=== PATIENT | male | born 1960 | race Caucasian/White ===

== ENCOUNTER 2017-09-09 18:43 | Inpatient (IN) ==
[2017-09-09] MEDS ORDERED: Nitroglycerin 0.4 MG TAB.SUBL SL PRN ×2 (18:56→21:48)
--- NOTE | 2017-09-09 19:00 | Emergency Department Note ---
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 The pain decreased after that 30 minutes but has not completely resolved. He felt lightheaded before the pain began, but not since. The pain initially radiated into his back, "between his shoulder blades". No prior similar episodes. Had PTCA and CABG 14 years ago. Severity scale (1-10): 3 Treatments prior to arrival chest pain: none - Related Data Allergies Allergy/AdvReac Type Severity Reaction Status Date / Time [place] Allergy Hives Verified 09/09/17 19:15 diltiazem [From Cardizem] Allergy Hives Verified 09/09/17 19:15 latex Allergy Hives Verified 09/09/17 19:15 pollen extracts Allergy Hives Verified 09/09/17 19:15 soybean Allergy Hives Verified 09/09/17 19:15 All systems ED: reviewed and negative except as stated. Constitutional: Reports: as per HPI Eyes: Denies: eye pain, eye discharge, vision change ENT ED: Denies: ear pain, throat pain, dental pain, hearing loss, epistaxis, congestion, dysphagia Cardiovascular: Reports: chest pain Respiratory: Denies: cough, dyspnea, wheezes, hemoptysis, stridor Gastrointestinal: Denies: abdominal pain, nausea, vomiting, diarrhea, constipation, hematemesis, melena, hematochezia Musculoskeletal: Denies: back pain, neck pain, arthralgia, myalgia Integumentary: Denies: rash, abrasion, lesions Neurological: Denies: headache, weakness, numbness, paresthesias, confusion, abnormal gait, vertigo Psychiatric: Denies: anxiety, depression, suicidal thoughts, homicidal thoughts , auditory hallucinations, visual hallucinations Endocrine: Denies: fatigue Hematological/Lymphatic: Denies: easy bleeding, easy bruising Allergic/Immunologic: Denies: facial swelling, urticaria Chest Pain PMH - Past Medical History Medical history: Reports: coronary artery disease Surgical history: Reports: coronary bypass (CABG) Psychiatric history: Reports: no psych history Prior Cardiac Testing/Procedures: Stenting, Cardiac Angiogram, CABG Physical Exam - General Limitations: no limitations General appearance: alert, in no apparent distress - Head Head exam: atraumatic, normocephalic - Eye Eye exam: Present: normal appearance, PERRL, EOMI - ENT ENT exam: normal exam, normal oropharynx, mucous membranes moist - Neck Neck exam: Present: normal inspection, full ROM, trachea midline - Chest Chest inspection: Present: normal inspection, symmetric chest wall rise. Absent : tenderness, rash - Respiratory Respiratory exam: Present: normal lung sounds bilaterally - Cardiovascular Cardiovascular exam: Present: regular rate, normal rhythm, normal heart sounds - Abdominal Exam Abdominal exam: Present: soft, Non-Tender - Extremities Exam Extremities exam: Present: normal inspection. 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 Plan on CTA if renal function permits - Consultations Consultation #1: discussed with hospitalist, asked for cards to comment on recommended path forward, at 2014 Consultation #2: discussed with Dr Brewer, cardiology, at 20:30, who concurred with admission and cardiology to re-evaluate him in the morning given administration of ASA and heparin Vital Signs Temperature 97.7 F 09/09/17 18:45 Pulse Rate 68 09/09/17 18:45 Respiratory Rate 18 09/09/17 18:45 Blood Pressure 121/76 09/09/17 18:45 O2 Sat by Pulse Oximetry 97 09/09/17 18:45 Temperature 97.7 F 09/09/17 18:57 Pulse Rate 68 09/09/17 18:57 Respiratory Rate 18 09/09/17 18:57 Blood Pressure 121/76 09/09/17 18:57 O2 Sat by Pulse Oximetry 97 06/28/18 18:57 Oxygen Delivery Oxygen Delivery Room Air Chest Pain - MDM Narrative Medical decision making narrative: This is a 57 y/o male with Hx CAD now with chest pain, normal CXR, and elevated troponin. ASA was given, and heparin started at the ACS dose. I discussed his case with the christian science practitioner hospitalist, who accepted him for admission. - Differential Diagnosis Likely: chest pain - Medical Records Medical records reviewed: Yes I reviewed the patient's medical records. - Lab Data Lab results reviewed: Yes I reviewed the patient's lab results. Result diagrams: 09/09/17 19:04 09/09/17 19:04 Lab Results 09/09/17 09/09/17 09/09/17 Range/Units 19:04 19:04 19:04 WBC 16.0 H (4.3-11.1) K/mcL RBC 5.50 (4.19-5.50) M/mcL Hgb 17.6 H (12.9-16.9) g/dL Hct 49.6 (37.5-50.1) % MCV 90.2 (83.0-100.0) fL MCH 32.0 (28.0-33.3) pg MCHC 35.5 (31.6-35.5) g/dL RDW 13.2 (11.5-14.5) % Plt Count 242 (140-400) K/mcL MPV 10.6 (9.4-12.4) fL Immature Gran % 0.9 (0-4) % Seg Neutrophils % 70.6 % Lymphocytes % 16.8 % Monocytes % 9.4 % Eosinophils % 1.6 % Basophils % 0.7 % Neutrophils # 11.3 H (1.6-8.9) K/mcL Lymphocytes # 2.7 (0.6-4.6) K/mcL Monocytes # 1.5 H (0.0-1.3) K/mcL Eosinophils # 0.3 (0.0-0.6) K/mcL Basophils # 0.1 (0.0-0.2) K/mcL PT 12.8 H (9.4-12.1) Seconds INR 1.1 APTT 31.1 (26.0-36.0) Seconds Sodium 132 L (136-145) mEq/L Potassium 3.9 (3.5-5.1) mEq/L Chloride 101 (98-107) mEq/L Carbon Dioxide 19 L (23-29) mEq/L BUN 18 (6-20) mg/dL Creatinine 0.90 (0.70-1.30) mg/dL Est GFR ( Amer) > 60 (> 60) Est GFR (Non-Af Amer) > 60 (> 60) BUN/Creatinine Ratio 20 (6-26) Glucose 145 H (70-105) mg/dL Calculated Osmolality 278 L (280-300) Calcium 10.5 H (8.6-10.3) mg/dL Troponin I 0.35 H* (< 0.04) ng/mL - Radiology Data Radiology results reviewed: Yes I reviewed the patient's radiology results. - EKG Data EKG results narrative: sinus rhythm, 67 bpm, PVCs, no FLORENCIO or STD, normal t-waves, normal axis, normal intervals - Core Measures AMI Core Measures Followed: Yes (asa given, heparin started) Critical Care Time Critical Care Time: Yes Total Critical Care Time: 20 Attestation: time spent reviewing test results and ECG, discussing case with cardiology, patient, and hospitalist
[2017-09-09 19:32] LABS: Hemoglobin 17.6 g/dL (12.9-16.9)
[2017-09-09 19:33] LABS: Basophils # 0.1 K/mcL (0.0-0.2); Basophils % 0.7 %; Eosinophils # 0.3 K/mcL (0.0-0.6); Eosinophils % 1.6 %; Hematocrit 49.6 % (37.5-50.1); Immature Granulocytes % 0.9 % (0-4); Lymphocytes # 2.7 K/mcL (0.6-4.6); Lymphocytes % 16.8 %; Mean Corpuscular HGB Conc 35.5 g/dL (31.6-35.5); Mean Corpuscular Volume 90.2 fL (83.0-100.0); Mean Platelet Volume 10.6 fL (9.4-12.4); Monocytes # 1.5 K/mcL (0.0-1.3); Monocytes % 9.4 %; Neutrophils # 11.3 K/mcL (1.6-8.9); Platelet Count 242 K/mcL (140-400); Red Cell Distribution Width 13.2 % (11.5-14.5); Segmented Neutrophils % 70.6 %
[2017-09-09] MEDS ORDERED: 0.9 % Sodium Chloride 1,000 ML IVC ONE (19:38)
[2017-09-09 19:57] LABS: BUN/Creatinine Ratio 20 (6-26); Blood Urea Nitrogen 18 mg/dL (6-20); Calcium 10.5 mg/dL (8.6-10.3); Carbon Dioxide 19 mEq/L (23-29); Chloride 101 mEq/L (98-107); Glucose 145 mg/dL (70-105); Osmolality,Calculated 278 (280-300); Potassium 3.9 mEq/L (3.5-5.1); Sodium 132 mEq/L (136-145); eGFR For African Americans > 60 (> 60); eGFR For Non-African Americans > 60 (> 60)
[2017-09-09 19:59] LABS: Troponin I 0.35 ng/mL (< 0.04)
[2017-09-09] MEDS ORDERED: *HR* Heparin 5,000 UNIT/ML VIAL IVP PRN (20:01)
[2017-09-09] MEDS ORDERED: *HR* Heparin 5,000 UNIT/ML VIAL IVP ONE (20:01)
[2017-09-09] MEDS ORDERED: Aspirin 81 MG TAB.CHEW PO STA (20:02)
[2017-09-09] MEDS ORDERED: Heparin 25,000 UNIT/500 ML D5W 25,000 UNIT/500 ML BAG IVC SCH (20:15)
[2017-09-09 20:24] LABS: INR 1.1; Prothrombin Time 12.8 Seconds (9.4-12.1)
[2017-09-09 20:26] LABS: Activated Partial Thrombo Time 31.1 Seconds (26.0-36.0)
[2017-09-09] MEDS ORDERED: Naloxone 0.4 MG/ML INJ IVP PRN (21:38)
[2017-09-09] MEDS ORDERED: Acetaminophen 325 MG TABLET PO PRN (21:44)
[2017-09-09] MEDS ORDERED: *HR* OxyCODONE/APAP 5/325 TABLET PO PRN (21:56)
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
[2017-09-10 02:51] LABS: Hematocrit 49.8 % (37.5-50.1); Hemoglobin 17.4 g/dL (12.9-16.9); Immature Platelets 5.4 % (1.1-6.1); Mean Corpuscular HGB Conc 34.9 g/dL (31.6-35.5); Mean Corpuscular Hemoglobin 32.2 pg (28.0-33.3); Mean Corpuscular Volume 92.1 fL (83.0-100.0); Mean Platelet Volume 10.5 fL (9.4-12.4); Red Blood Count 5.41 M/mcL (4.19-5.50); Red Cell Distribution Width 13.5 % (11.5-14.5)
[2017-09-10 03:07] LABS: BUN/Creatinine Ratio 19 (6-26); Blood Urea Nitrogen 15 mg/dL (6-20); Calcium 10.3 mg/dL (8.6-10.3); Carbon Dioxide 22 mEq/L (23-29); Chloride 102 mEq/L (98-107); Glucose 133 mg/dL (70-105); Osmolality,Calculated 281 (280-300); Sodium 134 mEq/L (136-145); eGFR For African Americans > 60 (> 60); eGFR For Non-African Americans > 60 (> 60)
[2017-09-10] MEDS: *HR* Heparin 5,000 UNIT/ML VIAL IVP PRN ×2 (03:22→11:08)
[2017-09-10] MEDS ORDERED: *HR* OxyCODONE/APAP 5/325 TABLET PO PRN (07:23)
[2017-09-10] MEDS: Loratadine 10 MG TABLET PO SCH (07:56)
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
[2017-09-10] MEDS ORDERED: Lisinopril 20 MG TABLET PO SCH (09:00)
[2017-09-10] MEDS: Aspirin 81 MG TAB.CHEW PO SCH (11:08)
--- NOTE | 2017-09-10 13:01 | Pre-Sedation Evaluation ---
Pre-sedation evaluation - Pre-sedation checklist Date of procedure: 09/10/17 Procedure: [facility] Recent Vitals: Last Vital Signs Temp 98.3 F 09/10/17 11:30 Pulse 69 09/10/17 11:30 Resp 16 09/10/17 11:30 BP 91/54 09/10/17 11:30 Pulse Ox 96 09/10/17 11:30 H&P (including ROS) documented in medical record: Yes Previous reaction to sedatives/anesthetics: No Dietary Status: NPO after Midnight Airway Assessment: Patient can open mouth completely, TMJ function normal, Micrognathia (under-bite, receding chin) absent, Neck with adequate range of motion Dentition: No loose teeth or bridges Possible difficult airway: No ASA Classification *see protocol: CLASS II-Mild systemic disease Cardiac Registry (Cardio Only) - Functional Capacity Functional Capacity: < 4 METS - Clincal Frailty Scale Clinical Frailty Scale: Vulnerable
[2017-09-10] MEDS ORDERED: 0.9 % Sodium Chloride 1,000 ML ONE ×2 (13:16→13:17)
[2017-09-10] MEDS ORDERED: *HR* Heparin 10,000 UNIT/10 ML VIAL ONE (13:16)
[2017-09-10] MEDS ORDERED: Heparin 1,000 UNITS/500 mL 500 ML ONE (13:16)
--- NOTE | 2017-09-10 13:16 | Internal Med Progress Note ---
<Jose Luis Sandoval - Last Filed: 09/10/17 15:18> Date of Encounter: 09/10/17 - Assessment and plan (1) NSTEMI (non-ST elevated myocardial infarction) Current Visit: Yes Status: Acute (2) Open abdominal wall wound Current Visit: Yes Status: Chronic Qualifiers: Encounter type: initial encounter Qualified Code(s): S31.109A - Unspecified open wound of abdominal wall, unspecified quadrant without penetration into peritoneal cavity, initial encounter (3) Hypertension, essential Current Visit: Yes Status: Acute (4) GERD (gastroesophageal reflux disease) Current Visit: Yes Status: Acute Qualifiers: Qualified Code(s): K21.9 - Gastro-esophageal reflux disease without esophagitis (5) CAD (coronary artery disease) Current Visit: Yes Status: Chronic Qualifiers: Coronary Disease-Associated Artery/Lesion type: [place] artery [place] vs. transplanted heart: [place] heart Associated angina: with unspecified angina Qualified Code(s): I25.119 - Atherosclerotic heart disease of [place] coronary artery with unspecified angina pectoris - Time Spent With Patient Total time spent is greater than 50% in coordination of care (as documented) at patient's floor/unit and/or counseling patient: - Constitutional Vitals: Temp Pulse Resp BP Pulse Ox 98.3 F 69 16 91/54 96 09/10/17 11:30 09/10/17 11:30 09/10/17 11:30 09/10/17 11:30 09/10/17 11:30 Internal Medicine: Result - Labs CBC & Chem 7: 09/10/17 02:24 09/10/17 02:24 Labs: Short CBC 09/10/17 Range/Units 02:24 WBC 10.9 (4.3-11.1) K/mcL Hgb 17.4 H (12.9-16.9) g/dL Hct 49.8 (37.5-50.1) % Plt Count 218 (140-400) K/mcL BMP 09/10/17 02:24 Sodium 134 L Potassium 4.0 Chloride 102 Carbon Dioxide 22 L BUN 15 Creatinine 0.78 Glucose 133 H Calcium 10.3 Cardiac Enzymes 09/10/17 09/10/17 Range/Units 02:24 09:22 Troponin I 5.94 H* 10.65 H* (< 0.04) ng/mL - ABG Interpretation ABG results: PT/INR, D-dimer PT 12.8 Seconds (9.4-12.1) H 09/09/17 19:04 Consult Discharge Plan - Plan Referrals: Nicole Gracia, ZOO KEEPER [Family Provider] - NONE,PCP [Primary Care Provider] - - Attending Attestation I performed an independent interview and examine of this patient. I agree with the findings, assessment, and plan of Dr. Jimenez, internal medicine resident. Cardiology input appreciated. Left heart catheterization planned for today in this patient with a non-STEMI. He continues on a heparin drip. Echocardiogram is pending. Patient is currently pain-free. We will request wound care evaluation for his chronic abdominal wound. Will likely need general surgery evaluation at some point as well. Patient otherwise remains hemodynamically stable. General: Awake alert and oriented 3, no acute distress skin warm and dry Lungs clear bilaterally, diminished breath sounds at the bases Heart regular rate and rhythm Abdomen soft with normoactive bowel sounds. He has a chronic abdominal wound as described on admission H&P. Currently covered by dressing Extremities show no significant edema <Damian Jimenez - Last Filed: 09/10/17 16:16> Date of Encounter: 09/10/17 Time of Encounter: 08:15 - Assessment and plan (1) NSTEMI (non-ST elevated myocardial infarction) Current Visit: Yes Status: Acute Assessment and plan: Elevated troponin, 0.35 to 5.94, no chest pain, dyspnea, or diaphoresis currently, ECG without st elevation or depression Plan: on schedule for LHC, heparin gtt, TTE (2) GERD (gastroesophageal reflux disease) Current Visit: Yes Status: Acute Assessment and plan: chronic, on PPI, continuing (3) Hypertension, essential Current Visit: Yes Status: Acute Assessment and plan: chronic, on deanne-i; continuing; normotensive (4) CAD (coronary artery disease) Current Visit: Yes Status: Chronic Assessment and plan: CABG x 2003 Per Cardiology: C today Pt placed on ASA, Statin, BB Qualifiers: Coronary Disease-Associated Artery/Lesion type: [place] artery [place] vs. transplanted heart: [place] heart Associated angina: with unspecified angina Qualified Code(s): I25.119 - Atherosclerotic heart disease of [place] coronary artery with unspecified angina pectoris (5) Open abdominal wall wound Current Visit: Yes Status: Chronic Assessment and plan: 7 year chronic open abdominal wound, s/p hernia surgery; self-dressing changes Plan: Wound care Qualifiers: Encounter type: initial encounter Qualified Code(s): S31.109A - Unspecified open wound of abdominal wall, unspecified quadrant without penetration into peritoneal cavity, initial encounter - Time Spent With Patient Total time spent is greater than 50% in coordination of care (as documented) at patient's floor/unit and/or counseling patient: - Subjective Interval history: On schedule for [facility], no chest pain or shortness of breath today, chronic midline wound (7 years) unchanged per patient. - Constitutional Vitals: Temp Pulse Resp BP Pulse Ox 98.3 F 69 16 91/54 96 09/10/17 11:30 09/10/17 11:30 09/10/17 11:30 09/10/17 11:30 09/10/17 11:30 General appearance: Present: A&O X 3, pleasant, no acute distress - Head Head exam: Present: atraumatic, normal inspection - Eye Eye exam: Present: EOMI, normal appearance - Neck Neck exam general surgery: Present: supple, trachea midline. Absent: lymphadenopathy - Respiratory Respiratory exam: Present: CTAB. Absent: accessory muscle use, rales, rhonchi, wheezes - Cardiovascular Cardiovascular exam: Present: RRR, +S1, +S2. Absent: diastolic murmur, gallop, rubs, systolic murmur - GI/Abdominal GI/Abdominal exam: Present: normal bowel sounds, soft. Absent: distended, tenderness Additional comments: midline open wound, no pururent drainage - Extremities Exam Extremities exam: Present: warm, radial pulses palpable and symmetrical. Absent : calf tenderness, cyanotic, pedal edema - Neurological Exam Neurological exam: Present: CN II-XII intact, oriented X3, no focal deficits. Absent: pronater drift, facial droop, speech deficit - Skin Skin exam: Present: dry, intact Internal Medicine: Result - Labs CBC & Chem 7: 09/10/17 02:24 09/10/17 02:24 Labs: Short CBC 09/10/17 Range/Units 02:24 WBC 10.9 (4.3-11.1) K/mcL Hgb 17.4 H (12.9-16.9) g/dL Hct 49.8 (37.5-50.1) % Plt Count 218 (140-400) K/mcL BMP 09/10/17 02:24 Sodium 134 L Potassium 4.0 Chloride 102 Carbon Dioxide 22 L BUN 15 Creatinine 0.78 Glucose 133 H Calcium 10.3 Cardiac Enzymes 09/10/17 09/10/17 Range/Units 02:24 09:22 Troponin I 5.94 H* 10.65 H* (< 0.04) ng/mL - ABG Interpretation ABG results: PT/INR, D-dimer PT 12.8 Seconds (9.4-12.1) H 09/09/17 19:04
[2017-09-10] MEDS ORDERED: ISOVUE-370 200 ML INFUS..BTL IV ONE ×2 (13:17→15:40)
[2017-09-10] MEDS ORDERED: Nitroglycerin 1,000 MCG/10 ML VIAL IV ONE ×2 (13:17→14:34)
[2017-09-10] MEDS ORDERED: *HR* Midazolam HCl 2 MG/2 ML VIAL ONE ×3 (13:50→14:52)
[2017-09-10] MEDS ORDERED: *HR* FentaNYL (PF) 100 MCG/2 ML VIAL ONE ×2 (13:50→14:45)
[2017-09-10] MEDS ORDERED: *HR* Adenosine 6 MG/2 ML VIAL IVP ONE (14:29)
[2017-09-10] MEDS ORDERED: *HR* Bivalirudin 250 MG VIAL IVC ONE ×2 (14:56)
[2017-09-10] MEDS ORDERED: *HR* Ticagrelor 90 MG TABLET ONE (15:10)
[2017-09-10] MEDS ORDERED: *HR* Atropine Sulfate 1 MG/10 ML SYRINGE ONE ×2 (15:27→19:50)
--- NOTE | 2017-09-10 16:30 | Invasive Diagnostic Lab Proc ---
Name: Raúl Calabrese Date of Study: 09/10/2017 Date: 1960 Ht: 68.1in Medical Record#: [id number] Age: 57 Wt: 210.98lb Gender: Male BSA: 2.09 Order #: [id number] BMI: 31.98 Physicians Procedure Physician: Vicki Carreon MD, [facility] Referring MD: Referring MD: Staff Name Position Time In Wally Vaz RN Scrub 01:46 PM Rabia Browning RT (R) Monitor 01:46 PM Koki Jones RN Lozenge Maker Helper 01:46 PM Eneida Feng RN Lozenge Maker Helper 01:46 PM Indications Indication Non-Stemi Procedures Performed Procedure L HRT ART/GRFT ANGIO Pre-Procedure Checklist Informed consent is complete signed and on chart. H&P is on chart. ID band is on and ID verified with patient. Patient NPO for procedure The procedure was described for the patient and questions were answered. Blood Pressure: 114/74 ECG is on chart. Plan of Care Patient will tolerate the procedure without complications. Adequate level of comfort will be maintained. Hemodynamics will remain stable Patient will recover from procedure without complications. Respiratory function will be maintained. Cardiac rhythm will remain stable. Patient temperature will be maintained. Patient and/or family have verbalized understanding of the procedure. Patient Education Chief Complaint/Reason for Test: Cardiac Cath Developmental Category: Adult (18-64 years) Developmentally Appropriate for Age: Yes Learning Barriers: None Education Needs: Procedure Education Method: Verbal Information Taught: Cardiac Cath Educational Evaluation: Able to repeat information Intravenous Access Time IV Size Location DC'd Fluid/Drip Rate Units RN 01:34 PM 18g 1 03/18" Patent On Arrival Rt Antecubital 0.9NaCl 25 ml/hr Koki Jones RN Allergies pollen extracts [place] soybean latex Penicillin diltiazem Calcium Channel Shilpa Vital Signs Time BP (mmHg) HR (bpm) O2 Sat. RR (bpm) LOC 01:35 PM 114 / 74 58 98 % 16 01:48 PM / % 5 = Fully awake and oriented or at pre-proc level 01:48 PM / % 5 = Fully awake and oriented or at pre-proc level 02:03 PM / % 4 = Oriented but drowsy 02:19 PM / % 4 = Oriented but drowsy 02:34 PM / % 4 = Oriented but drowsy 02:52 PM / % 4 = Oriented but drowsy 03:07 PM / % 4 = Oriented but drowsy 02:29 PM 110 / 70 64 98 % 02:34 PM 106 / 70 63 99 % 02:39 PM 110 / 72 64 99 % 02:44 PM 112 / 86 65 100 % 02:49 PM 120 / 82 67 97 % 02:54 PM 129 / 80 67 98 % 02:59 PM 130 / 88 74 98 % 03:04 PM 116 / 75 67 94 % 03:09 PM 104 / 70 72 93 % 03:14 PM 114 / 72 69 98 % 01:49 PM 113 / 70 59 96 % 01:54 PM 111 / 59 59 98 % 01:59 PM 114 / 62 63 98 % 02:04 PM 107 / 70 60 97 % 02:09 PM 108 / 76 62 96 % 02:11 PM 112 / 67 62 97 % 02:14 PM 115 / 68 78 97 % 02:19 PM 110 / 66 64 98 % 02:24 PM 116 / 68 65 99 % Procedural Medications Time Medication Dose Units Method Given By 01:55 PM Oxygen 2 L/min nasal cannula Koki Jones RN 01:55 PM Versed 2 mg Intravenous Koki Jones RN 01:56 PM Fentanyl 50 mcg Intravenous Koki Jones RN 02:05 PM Versed 1 mg Intravenous Koki Jones RN 02:05 PM Fentanyl 25 mcg Intravenous Koki Jones RN 02:06 PM Lidocaine 2% 20 ml Subcutaneous Vicki Carreon MD, FACC 02:09 PM Benadryl 25 mg Intravenous Koki Jones RN 02:31 PM Angiomax 0.75mg/kg bolus: 14 ml Intravenous Koki Jones RN 02:31 PM Angiomax 1.75mg/kg/hr: 33 ml Intravenous Koki Jones RN 02:44 PM Nitroglycerin 200 mcg Intracoronary Vicki Carreon MD, FACC 02:44 PM Nitroglycerin 200 mcg Intracoronary Vicki Carreon MD, FACC 02:45 PM Fentanyl 50 mcg Intravenous Koki Jones RN 02:46 PM Adenosine 400 mg Intracoronary Vicki Carreon MD, FACC 02:52 PM Reopro Bolus: 11.9 ml Intracoronary Vicki Carreon MD, FACC 02:53 PM Versed 2 mg Intravenous Koki Jones RN 03:00 PM Nitroglycerin 200 mcg Intracoronary Vicki Carreon MD, [facility] 03:01 PM Nitroglycerin 200 mcg Intracoronary Wally Vaz RN 03:04 PM Nitroglycerin 200 mcg Intracoronary Vicki Carreon MD, [facility] 03:18 PM Brilinta 180 mg Orally Koki Jones RN ASA Classification: CLASS II- Mild systemic disease (i.e. well-controlled diabetes, hypertension, asthma, cigarette smoking) Carlton Score Preprocedure Postprocedure Activity 2- Moves 4 extremities sustained head lift Activity 2- Moves 4 extremities sustained head lift Circulation 2- SBP +/= 20 points of pre-anesthetic level Circulation 2- SBP +/= 20 points of pre-anesthetic level Consciousness 2- Awake and alert oriented x 3 Consciousness 2- Awake and alert oriented x 3 O2 Saturation 2- Able to maintain O2 satruation of 92% on room air O2 Saturation 2- Able to maintain O2 satruation of 92% on room air Respiratory 2- Able to deep breathe and cough well Respiratory 2- Able to deep breathe and cough well Total Score 10 Total Score 10 Contrast Agent: Isovue Diagnostic Contrast: 146 ml Total Contrast: 146 ml Fluoro Dose: 78170 mGy Procedure Log Time Note Enter By 01:36 PM CathStat 01:45 PM Pt arrived to pathology laboratory director 2 at 13:45 dspell:46 PM Wally Vaz RN Position: Scrub Time in: 13:46 dspell:46 PM Rabia Browning RT (R) Position: Monitor Time in: 13:46 dsp:46 PM Koki Jones RN Position: Lozenge Maker Helper Time in: 13:46 dspell:46 PM Physician arrived 13:46 dspell:46 PM Eneida Feng RN Position: Lozenge Maker Helper Time in: 13:46 dspell:46 PM Patient charges- Angio tray pack, Navilyst 3mm J, Pulse Oximetry and ACIST tubing and transducer dspell:46 PM IV Supplies used: J loop Angio Cath. dspell 01:47 PM Case Delayed No dspell:47 PM Meet and greet completed dspell:47 PM Sign in performed according to hospital policy. dspell:47 PM Procedure start 13:47 dspellman 01:47 PM Case Start 01:48 PM Time: 13:48 Patient comfortable and pain free: Yes dspellman 01:48 PM Time: 13:48LOC: 5 = Fully awake and oriented or at pre-proc level dspellman 01:48 PM Vitals capture started with the following parameters, Patient=Adult, Interval=5 min, Initial Lyithsvd=788 mmHg, Deflation Rate=5 mmHg, Cuff placed on Right Arm 01:49 PM HR=59 bpm, YSIL=220/70 mmhg, SpO2=96.0 %, Comment=Sinus Huy 01:54 PM HR=59 bpm, TLOD=329/59 mmhg, SpO2=98.0 %, Comment=Sinus Huy 01:55 PM Time: 13:55 Oxygen on at 2 L/min per nasal cannula by Koki Jones RN dspkeke 01:56 PM Time: 13:55 Versed 2 mg Intravenous Given by Koki Jones RN dspkeke 01:56 PM Time: 13:56 Fentanyl 50 mcg Intravenous Given by Koki Jones RN dspkeke 01:57 PM Hair removed from procedure site in holding area using clippers. Bilateral groin prepped with Chloraprep by Rabia Browning (R), then patient was draped. Skin intact. dspellman 01:57 PM Clinical Presentation: Non-STEMI dspellman 01:58 PM Pressure channel 1 zero failed. 01:58 PM Pressure channel 1 zero failed. 01:58 PM Pressure channel 1 zeroed. 01:58 PM Pressure channel 1 zeroed. 01:59 PM HR=63 bpm, MKYQ=823/62 mmhg, SpO2=98.0 %, Comment=Sinus 02:03 PM Time: 13:48LOC: 5 = Fully awake and oriented or at pre-proc level dspellman 02:03 PM Time: 13:48 Patient comfortable and pain free: Yes dspellman 02:03 PM Time out performed according to hospital policy dspellman 02:04 PM HR=60 bpm, XOEC=983/70 mmhg, SpO2=97.0 %, Comment=Sinus 02:05 PM Time: 14:05 Versed 1 mg Intravenous Given by Koki Jones RN 02:06 PM Time: 14:05 Fentanyl 25 mcg Intravenous Given by Koki Jones RN 02:06 PM Time: 14:06 20 ml Lidocaine 2% to right groin Subcutaneous Given by Vicki Carreon MD, [facility] dspellman 02:06 PM Access obtained by percutaneous puncture. 5Fr 10cm Terumo [place] sheath placed in right Femoral artery. [id number] dspellman 02:07 PM 0.035 145cm Navilyst 3mmJ wire [id number] dspellman 02:07 PM 5Fr FL 4 catheter inserted over the wire DN dspellman 02:07 PM unable to advance catheter or wire dspellman 02:08 PM Catheter removed dspellman 02:08 PM 5Fr FR 4 catheter inserted over the wire [facility] dspellman 02:08 PM Wire removed dspellman 02:09 PM HR=62 bpm, FVOQ=257/76 mmhg, SpO2=96.0 %, Comment=Sinus 02:09 PM RCA angiography performed in multiple views. dspellman 02:09 PM Time: 14:09 Benadryl 25 mg Intravenous Given by Koki Jones RN dspellman 02:10 PM SVG to the RPDA angio performed in multiple views. Patent dspellman 02:10 PM SVG to the 1st Diagonal angio performed in multiple views. Patent dspellman 02:10 PM NIBP STAT measurement started. 02:11 PM HR=62 bpm, MRDQ=980/67 mmhg, SpO2=97.0 %, Comment=Sinus 02:11 PM SVG to the 1st OM angio performed in [place]. Occluded dspellman 02:12 PM Catheter removed dspellman 02:13 PM 5Fr IM catheter inserted over the wire [id number] dspellman 02:13 PM Recorded Pressure: Ao, HR=73, Condition=Condition 1 (Aorta) Ao 44/16/32 02:14 PM Recorded Pressure: Ao, HR=67, Condition=Condition 1 (Aorta) Ao 81/60/70 02:14 PM HR=78 bpm, PSSD=029/68 mmhg, SpO2=97 % 02:14 PM Left CATHERINE to the LAD angio performed in multiple views. dspellman 02:14 PM Catheter removed dspellman 02:14 PM 5Fr FL 4 catheter inserted over the wire [facility] dspellman 02:16 PM LCA angiography performed in multiple views. dspellman 02:16 PM Catheter removed dspellman 02:16 PM 5Fr Pigtail catheter inserted over the wire DNC dspellman 02:18 PM Pressure channel 1 zeroed. 02:18 PM Recorded Pressure: LV, HR=66, Condition=Condition 1 (Left Ventricle) LV 84/6/6 02:19 PM Time: 14:03 Patient comfortable and pain free: Yes dspellman 02:19 PM Time: 14:03LOC: 4 = Oriented but drowsy dspellman 02:19 PM HR=64 bpm, URPO=256/66 mmhg, SpO2=98.0 %, Comment=Sinus 02:19 PM Recorded Pressure: LV, Ao, HR=65, Condition=Condition 1 (Left Ventricle) LV 78/11/12, (Aorta) Ao 89/50/76 02:19 PM Catheter selectively placed in left ventricle dspellman 02:19 PM Bolus angiogram of left Ventricle complete: 8 ml/sec for a total of 24 mls dspellman 02:21 PM Catheter removed dspellman 02:21 PM Coronary Dominance: right dspellman 02:22 PM Lesion found in Proximal RCA. Pre Stenosis: 100 Pre JING Flow: 0: No Flow/No perfusion dspellman 02:24 PM HR=65 bpm, STRI=221/68 mmhg, SpO2=99.0 %, Comment=Sinus 02:24 PM Pressure channel 1 zeroed. 02:29 PM HR=64 bpm, RIIN=972/70 mmhg, SpO2=98.0 %, Comment=Sinus 02:31 PM PCI Status Urgent dspellman 02:31 PM Time: 14:31 Angiomax 0.75mg/kg bolus: 14 ml Intravenous Given by Koki Jones RN [place] pump dspellman 02:32 PM Time: 14:31 Angiomax 1.75mg/kg/hr: 33 ml Intravenous Given by Koki Jones RN [place] pump dspellman 02:32 PM Recorded Pressure: Ao, HR=75, Condition=Condition 1 (Aorta) Ao 103/68/86 02:33 PM PCI lesion in Right PDA. dspellman 02:33 PM 6Fr JR 4 Cordis guide catheter was used to cannulate the PCI vessel successfully. reused? No dspellman 02:34 PM HR=63 bpm, PDRX=412/70 mmhg, SpO2=99.0 %, Comment=Sinus 02:34 PM Time: 14:19LOC: 4 = Oriented but drowsy dspellman 02:34 PM .014 Prowater 190cm guide wire across target lesion- successful. reused? No dspellman 02:34 PM Inflation device was opened. dspell 02:34 PM Filter wire inserted to target lesion. dspellman 02:36 PM Recorded Pressure: Ao, HR=63, Condition=Condition 1 (Aorta) Ao 110/85/97 02:39 PM HR=64 bpm, SJAD=590/72 mmhg, SpO2=99.0 %, Comment=Sinus 02:41 PM 4.0mm x 24mm Synergy drug-eluting stent across target lesion- successful Lot #[id number] dspellman 02:41 PM Stent deployed @ 16 ana for 30 seconds dspellman 02:42 PM Stent balloon reinflated @ 20 ana for 20 seconds dspell 02:43 PM Stent delivery system removed intact. dspell 02:43 PM complaint of low back pain dspellman 02:44 PM HR=65 bpm, IWKX=664/86 mmhg, CoI7=558.0 %, Comment=Sinus 02:44 PM Time: 14:44 Nitroglycerin 200 mcg Intracoronary Given by Vicki Carreon MD, [facility] dspell 02:45 PM Time: 14:44 Nitroglycerin 200 mcg Intracoronary Given by Vicki Carreon MD, [facility] 02:45 PM Time: 14:45 Fentanyl 50 mcg Intravenous Given by Koki Jones RN dspell 02:45 PM Recorded Pressure: Ao, HR=72, Condition=Condition 1 (Aorta) Ao 115/82/98 02:46 PM Time: 14:46 Adenosine 400 mg Intracoronary Given by Vicki Carreon MD, [facility] 02:46 PM Recorded Pressure: Ao, HR=61, Condition=Condition 1 (Aorta) Ao 120/79/98 02:46 PM Recorded Pressure: Ao, HR=68, Condition=Condition 1 (Aorta) Ao 178/68/108 02:49 PM HR=67 bpm, SPWT=444/82 mmhg, SpO2=97.0 %, Comment=Sinus 02:52 PM Time: 14:34LOC: 4 = Oriented but drowsy dspellman 02:52 PM Time: 14:52 Reopro Bolus: 11.9 ml Intracoronary Given by Vicki Carreon MD, [facility] [place] pump dspell 02:53 PM Time: 14:53 Versed 2 mg Intravenous Given by Koki Jones RN dspell 02:54 PM HR=67 bpm, ZJOA=995/80 mmhg, SpO2=98.0 %, Comment=Sinus 02:54 PM 4.5mm x 16mm Rebel [employer] bare metal stent across target lesion- successful Lot #[id number] dspellman 02:57 PM Stent deployed @ 18 ana for 20 seconds dspellman 02:58 PM Stent balloon reinflated @ 20 ana for 15 seconds dspellman 02:59 PM Stent balloon reinflated @ 20 ana for 15 seconds dspellman 02:59 PM HR=74 bpm, VWMC=916/88 mmhg, SpO2=98.0 %, Comment=Sinus 02:59 PM Recorded Pressure: Ao, HR=74, Condition=Condition 1 (Aorta) Ao 134/98/114 02:59 PM Stent delivery system removed intact. dspell 03:00 PM Time: 15:00 Nitroglycerin 200 mcg Intracoronary Given by Vicki Carreon MD, [facility] dspell 03:01 PM Recorded Pressure: Ao, HR=72, Condition=Condition 1 (Aorta) Ao 149/97/118 03:01 PM Time: 15:01 Nitroglycerin 200 mcg Intracoronary Given by Wally Vaz RN dspell 03:03 PM Filter wire removed. dspell 03:04 PM HR=67 bpm, EGSJ=568/75 mmhg, SpO2=94.0 %, Comment=Sinus 03:04 PM Time: 15:04 Nitroglycerin 200 mcg Intracoronary Given by Vicki Carreon MD, [facility] dspell 03:06 PM Guide catheter removed intact. dspell 03:07 PM Time: 14:52LOC: 4 = Oriented but drowsy dspell 03:08 PM 5Fr FR 4 catheter inserted over the wire [facility] dspellman 03:09 PM RCA angiography performed in [facility]. dspell 03:09 PM HR=72 bpm, ACXG=030/70 mmhg, SpO2=93.0 %, Comment=Sinus 03:09 PM Catheter removed dspell 03:10 PM Bolus angiogram of right Femoral complete: 4 ml/sec for a total of 7 mls dspell 03:11 PM Procedure completed at 15:11 09/10/2017 dspellman 03:14 PM HR=69 bpm, UBPN=027/72 mmhg, SpO2=98.0 %, Comment=Sinus 03:15 PM Did you address JING flow and Dominance? Yes dspellman 03:16 PM Sign out completed: Radiation Dose 1262.23 mGy, 30111 cGy/cm2 Fluoro Time: 15.5 Isovue 370 - 200ml contrast 146 ml given by Vicki Carreon MD, [facility]. Complications: NoneCardiac Rehab Consult needed: YesConfirmed administered medications: Yes dspellman 03:16 PM Isovue 370 - 200ml,1 Bottle(s) used. dspellman 03:16 PM Sheath left in place to be pulled on floor/holding areaV+Pad dspellman 03:17 PM Estimated Blood Loss: minimal dspellman 03:17 PM Post ECG NSR dspellman 03:17 PM Post Blood Pressure 114/72 dspellman 03:17 PM 15:17 Post Pulses Bilateral DP & PT 2+ dspellman 03:17 PM Information taught Cardiac Cath and PCI dspellman 03:18 PM Education needs Procedure, Disease Process, and Responsibilities of Patient in Care dspellman 03:18 PM Learning barriers :None dspellman 03:18 PM Education Methods Verbal dspellman 03:18 PM Education evaluation Able to repeat information dspellman 03:18 PM Site status No bleeding/hematoma - Rt Groin as reported by Wally Vaz RN at 15:18 dspellman 03:18 PM Opsite applied dspellman 03:18 PM Plavix, Effient or Brilinta given Yes dspellman 03:19 PM Time: 15:18 Brilinta 180 mg Orally Given by Koki Jones RN dspellman 03:19 PM Delay to floor No dspellman 03:20 PM Family placed in No family available. dspellman 03:20 PM Complications: None dspellman 03:20 PM Fluoro Time: 15.5 dspellman 03:20 PM Isovue 370 - 200ml contrast [address] Brenda Carreon. dspellman 03:20 PM Radiation Dose 1262.23 mGy dspellman 03:22 PM Lesion found in Proximal LAD. Pre Stenosis: 100 Pre JING Flow: dspellman 03:22 PM Lesion found in 1st Diagonal. Pre Stenosis: 60 Pre JING Flow: dspellman 03:22 PM Time: 15:07LOC: 4 = Oriented but drowsy dspellman 03:23 PM Lesion found in Proximal Circumflex. Pre Stenosis: 100 Pre JING Flow: dspellman 03:23 PM Lesion found in 1st Marginal. Pre Stenosis: 100 Pre JING Flow: dspellman 03:24 PM Lesion found in Right PDA. Pre Stenosis: 90 Pre JING Flow: 2: Partial Flow/Perfusion (> 1 but < 3) dspellman 03:25 PM Lesion found in Ramus. Pre Stenosis: 40 Pre JING Flow: dspellman 03:25 PM Lesion found in Proximal LMCA. Pre Stenosis: 50 Pre JING Flow: dspellman 03:28 PM Patient out of room: 15:28 dspellman 03:33 PM Report given to July ROMEO Pt taken to 2N Room #8. 15:33 dspellodalis Complications Complication None None Hemodynamics Pressures Site Systolic/A Wave Diastolic/V Wave Mean AO 44 16 32 AO 81 60 70 LV 84 6 6 LV 78 11 12 AO 89 50 76 AO 103 68 86 AO 110 85 97 AO 115 82 98 AO 120 79 98 AO 178 68 108 AO 134 98 114 AO 149 97 118 Post Procedure Information Blood Pressure: 114/72 mmHg Rhythm: NSR Post procedural instructions were given Closure Device Time Device Success/Fail 09/10/2017 3:40:00 PM Manual Compression Site Checks Time Location Status Staff Sheath In? Note 03:18 PM Rt Groin No bleeding/hematoma Wally Vaz RN Yes Pulses Time Site Pre-Procedure Post-Procedure Note 09/10/2017 1:34:00 PM Bilateral DP & PT 2+ 09/10/2017 1:35:00 PM Bilateral radial 2+ 3:17:00 PM Bilateral DP & PT 2+ Updated by Rabia Browning RT (R) on 09/10/2017 4:22:19 PM Rabia Browning RT electronically signed on 09/10/2017 4:23:27 PM with status of Final
[2017-09-11 04:01] LABS: Basophils # 0.1 K/mcL (0.0-0.2); Basophils % 0.6 %; Eosinophils # 0.3 K/mcL (0.0-0.6); Eosinophils % 2.8 %; Hematocrit 47.9 % (37.5-50.1); Hemoglobin 16.5 g/dL (12.9-16.9); Immature Granulocytes % 0.7 % (0-4); Lymphocytes % 19.1 %; Mean Corpuscular HGB Conc 34.4 g/dL (31.6-35.5); Mean Corpuscular Volume 92.8 fL (83.0-100.0); Mean Platelet Volume 10.4 fL (9.4-12.4); Monocytes # 1.2 K/mcL (0.0-1.3); Monocytes % 11.7 %; Neutrophils # 6.9 K/mcL (1.6-8.9); Platelet Count 207 K/mcL (140-400); Red Blood Count 5.16 M/mcL (4.19-5.50); Red Cell Distribution Width 13.6 % (11.5-14.5); Segmented Neutrophils % 65.1 %
[2017-09-11 04:25] LABS: BUN/Creatinine Ratio 21 (6-26); Blood Urea Nitrogen 14 mg/dL (6-20); Calcium 9.3 mg/dL (8.6-10.3); Carbon Dioxide 20 mEq/L (23-29); Chloride 105 mEq/L (98-107); Glucose 185 mg/dL (70-105); Osmolality,Calculated 281 (280-300); Potassium 4.1 mEq/L (3.5-5.1); Sodium 133 mEq/L (136-145); eGFR For African Americans > 60 (> 60); eGFR For Non-African Americans > 60 (> 60)
[2017-09-11 04:33] LABS: Troponin I 7.78 ng/mL (< 0.04)
[2017-09-11] MEDS: Loratadine 10 MG TABLET PO SCH (08:07)
[2017-09-11] MEDS: Aspirin 81 MG TAB.CHEW PO SCH (08:07)
[2017-09-11] MEDS ORDERED: Metoprolol XL (24 HR) Succ 25 MG TAB.ER.24H PO SCH (09:00)
[2017-09-11] MEDS ORDERED: Nicotine 14 MG PATCH.TD24 TD SCH (09:00)
--- NOTE | 2017-09-11 11:15 | Electrocardiograph Report ---
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
--- NOTE | 2017-09-11 11:21 | Cardiology Progress Note ---
Date of Encounter: 09/11/17 Time of Encounter: 10:00 Assessment and Plan (1) NSTEMI (non-ST elevated myocardial infarction) Current Visit: Yes Status: Acute Troponins 0.35, 5.94, 10. EKG SR, lateral and inferior MIs. S/p PCI to the SVG to PDA. 3/4 patent bypass graft including FRIEND-LAD, SVG-PDA ( 90% stenosis)with ERIC, SVG 1st Diag with 60% stenosis, SVG-OM is occluded. There was no complication from the procedure. Denies recurrent chest pain. No complications from right femoral access site. Importance of DAPT with asa and plavix uninterrupted for minimum of one year discussed and he voiced understanding. Continue statin and BB. Activity restrictions reviewed. No driving for one week, no lifting over ten lbs for one week, no soaking for one week. Cardiac rehab ordered. Cardiology will sign off. Out-pt f/u will be coordinated by [facility]. (2) CAD (coronary artery disease) Current Visit: Yes Status: Chronic Hx of PCI and CABG x 5 at [facility] in 2003. NSTEMI as above. ASA, Statin, BB, plavix. Qualifiers: Coronary Disease-Associated Artery/Lesion type: [place] artery [place] vs. transplanted heart: [place] heart Associated angina: with unspecified angina Qualified Code(s): I25.119 - Atherosclerotic heart disease of [place] coronary artery with unspecified angina pectoris Discussion w patient/family: The assessment and plan as outlined above was discussed with the patient and/or family members who expressed understanding and agreement. All questions were answered. Thank you for involving us in the care of your patient. Please call with any questions. Subjective Principal diagnosis: NSTEMI Interval history: Patient denies recurrent chest pain. Objective Vital Signs, Last 4 Hours Pulse Resp Pulse Ox 09/11/17 10:13 55 20 95 09/11/17 08:14 62 09/11/17 08:12 62 20 95 General: Conversant, No Apparent Distress HEENT: Atraumatic, Normocephaly, Mucus Membranes Moist Neck: No JVD, Normal carotid pulses Cardiac: Reg Rate and Rhythm, Normal S1 and S2, No Murmur Lungs: Normal Breath Sounds, No Wheeze, Rales, Rhonchi Neuro: Alert and responsive, No focal deficits noted Abdomen: Soft, Other (Open abd wound, foul odor) Skin: No rashes noted on visualized skin Musculoskeletal: No Chest Wall Tenderness Extremities: No Clubbing, No Cyanosis, No Edema, Normal Pulses, Other (Right femoral access without hematoma, redness, or swelling. ) Results 09/11/17 03:44 09/11/17 03:44 Lab Results 09/11/17 09/11/17 03:44 03:44 WBC 10.5 Hgb 16.5 Hct 47.9 Plt Count 207 Sodium 133 L Potassium 4.1 Chloride 105 Carbon Dioxide 20 L BUN 14 Creatinine 0.68 L Glucose 185 H Calcium 9.3 Troponin I 7.78 H* - Imaging and Cardiology Echo: report reviewed Cardiac cath: report reviewed - EKG Interpretation EKG results cardiology: personally reviewed Consult Discharge Plan - Plan Referrals: Nicole Gracia, HAT MARKER [Family Provider] - NONE,PCP [Primary Care Provider] -
[2017-09-11 11:27] VITALS: BP 104/60
--- NOTE | 2017-09-11 15:22 | Discharge Summary ---
- NOTES TO OUTPATIENT PROVIDER Notes to Outpatient Provider: Follow up with PCP in 2-3 days after discharge. Recheck BMP and CBC at that time. Follow up with cardiology as directed. Orders not resulted at time of discharge: Pending orders 09/10/17 15:27 ECG 12 lead ECG [ECG] Stat 09/11/17 06:00 ECG 12 lead ECG [ECG] AM 0600 Date of Encounter: 09/11/17 Time of Encounter: 15:20 - Discharge Diagnosis (1) NSTEMI (non-ST elevated myocardial infarction) Priority: Primary Status: Acute (2) Open abdominal wall wound Priority: Secondary Status: Chronic Qualifiers: Encounter type: initial encounter Qualified Code(s): S31.109A - Unspecified open wound of abdominal wall, unspecified quadrant without penetration into peritoneal cavity, initial encounter (3) Hypertension, essential Priority: Secondary Status: Acute (4) GERD (gastroesophageal reflux disease) Priority: Secondary Status: Acute Qualifiers: Esophagitis presence: esophagitis presence not specified Qualified Code(s) : K21.9 - Gastro-esophageal reflux disease without esophagitis (5) CAD (coronary artery disease) Priority: Secondary Status: Chronic Qualifiers: Coronary Disease-Associated Artery/Lesion type: [place] artery [place] vs. transplanted heart: [place] heart Associated angina: with unspecified angina Qualified Code(s): I25.119 - Atherosclerotic heart disease of [place] coronary artery with unspecified angina pectoris Hospital course: Mr. Calabrese is a 57 year old male admitted for lightheadedness and chest pain secondary to NSTEMI. He was admitted to general medical floor with telemetry. Cardiology was consulted. Heparin drip was started. Cardiac enzymes trended up to 10.65. Cardiology started aspirin, statin, and beta kalee. He is S/p PCI to the SVG to PDA. 3/4 patent bypass graft including FRIEND-LAD, SVG-PDA (90% stenosis)with ERIC, SVG 1st Diag with 60% stenosis, SVG-OM is occluded. ECHO showed EF 45%, moderately dilated left ventricle, mild segmental LV systolic dysfunction, mild LV diastolic dysfunction, atypical septal motion, RV grossly normal in function, and mild pulmonic regurgitation. He was referred to cardiac rehab. He will follow up with PCP in 2-3 days after discharge. BMP and CBC will be rechecked at that time. He will follow up with cardiology as directed. Patient has met maximum benefit of this hospitalization and will be discharged home in stable condition. Discharge discussed with: patient, nurse - Time Spent with Patient Total time spent providing and/or coordinating discharge services: Greater than 30 minutes - Discharge Medications Prescriptions: Nitroglycerin 0.4 mg SL Q5MIN PRN 7 Days #7 tab.subl PRN Reason: Chest Pain Aspirin 81 mg PO DAILY 7 Days #7 tab.chew Atorvastatin [Lipitor] 40 mg PO HS 7 Days #7 tablet Clopidogrel [Plavix] 75 mg PO DAILY 7 Days #7 tablet Lisinopril [Zestril] 10 mg PO DAILY 7 Days #7 tablet Metoprolol XL (24 HR) Succ [Toprol Xl] 12.5 mg PO DAILY 7 Days #7 tab.er.24h Nicotine Patch [Nicoderm] 14 mg TD DAILY 7 Days #7 patch.td24 Home Medications: Loratadine [Claritin] 10 mg PO DAILY 09/09/17 [History] Omeprazole [PriLOSEC] 40 mg PO DAILY 09/09/17 [History] OxyCODONE/APAP 5/325 [Percocet 5/325 MG] 1 tab PO Q6HR PRN 09/09/17 [History] Aspirin 81 mg PO DAILY 7 Days #7 tab.chew 09/11/17 [Rx] Atorvastatin [Lipitor] 40 mg PO HS 7 Days #7 tablet 09/11/17 [Rx] Clopidogrel [Plavix] 75 mg PO DAILY 7 Days #7 tablet 09/11/17 [Rx] Lisinopril [Zestril] 10 mg PO DAILY 7 Days #7 tablet 09/11/17 [Rx] Metoprolol XL (24 HR) Succ [Toprol Xl] 12.5 mg PO DAILY 7 Days #7 tab.er.24h [Rx] Nicotine Patch [Nicoderm] 14 mg TD DAILY 7 Days #7 patch.td24 09/11/17 [Rx] Nitroglycerin 0.4 mg SL Q5MIN PRN 7 Days #7 tab.subl 09/11/17 [Rx] Allergies/Adverse Reactions: 3 Allergy/AdvReac Type Severity Reaction Status Date / Time [place] Allergy Hives Verified 09/09/17 21:18 diltiazem [From Cardizem] Allergy Hives Verified 09/09/17 21:18 latex Allergy Hives Verified 09/09/17 21:18 pollen extracts Allergy Hives Verified 09/09/17 21:18 soybean Allergy Hives Verified 09/09/17 21:18 Date of admission: 09/09/17 21:38 Primary care physician: PCP NONE Consults: Cardiology 09/10/17 10:11 Consult to Wound Care [CONS] Routine Reason for Consult: non healing surgical wound Call Completed: Yes 09/10/17 15:27 Consult to Cardiac Rehabilitation-Phase1 [CONS] Routine Comment: Reason for Consult: post op PCI Call Completed: Yes Discharging clinician: Tamir Bean Anticipated date of discharge: 09/11/17 - Constitutional Vitals: Temp Pulse Resp BP Pulse Ox 97.8 F 50 16 104/60 95 09/11/17 11:24 09/11/17 13:29 09/11/17 13:29 09/11/17 11:24 09/11/17 13:29 General appearance: Present: cooperative, A&O X 3, pleasant, no acute distress, answers questions appropriately - Respiratory Respiratory exam: Present: CTAB. Absent: accessory muscle use, rales, rhonchi, wheezes Additional comments: Normal WOB - Cardiovascular Cardiovascular exam: Present: RRR, +S1, +S2. Absent: diastolic murmur, gallop, rubs, systolic murmur Additional comments: No BLE edema - GI/Abdominal GI/Abdominal exam: Present: normal bowel sounds, soft. Absent: distended, hepatomegaly, mass, splenomegaly, tenderness - Psychiatric Psychiatric exam: Present: normal affect, normal mood. Absent: agitated, anxious, depressed - Skin Skin exam: Present: dry, intact, warm. Absent: cyanosis, rash - Patient Status Disposition: Home, Self-Care Condition: Good Overall status at discharge: patient is progressing back to baseline - Discharge Instructions Follow Up With: Nicole Gracia CNP [Family Provider] - NONE,PCP [Primary Care Provider] - Additional Instructions: Follow up with PCP in 2-3 days after discharge. Recheck BMP and CBC at that time. Follow up with cardiology as directed. - Diet and Activity Activity: resume usual activities as tolerated Diet: low fat, low cholesterol, low salt diet, other (Cardiac Diet)
--- NOTE | 2017-09-13 17:43 | Electrocardiograph Report ---
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
== END 2017-09-11 16:30 | disposition home or self-care (01) | DRG 174 ==
LOC: 2ANU 18:43 → EMEROO 18:43 → 2ANU 21:19 → 2NNU 09-10 15:15
PROVIDERS: ADMIT Family Medicine; ATTEND Family Medicine

== ENCOUNTER 2018-01-28 21:09 | Inpatient (IN) ==
--- NOTE | 2018-01-28 21:33 | Emergency Department Note ---
Disposition Clinical Impression: Chest pain, STEMI (ST elevation myocardial infarction), Elevated troponin Disposition: Admitted As Inpatient Condition: Serious Referrals: NONE,PCP [Non-Partnered Physician] - General Adult HPI - General Chief complaint: ED Chest Pain Stated complaint: Cp Time Seen by Provider: 01/28/18 21:13 - Related Data Home Medications Medication Instructions Recorded Confirmed Loratadine [Claritin] 10 mg PO DAILY 09/09/17 01/28/18 Omeprazole [PriLOSEC] 40 mg PO DAILY 09/09/17 01/28/18 OxyCODONE/APAP 5/325 [Percocet 1 tab PO Q6HR PRN 09/09/17 01/28/18 5/325 MG] Albuterol Sulfate [Proair Hfa] 2 puff IH Q4H PRN 01/28/18 01/28/18 Previous Rx's Medication Instructions Recorded Aspirin 81 mg PO DAILY 7 Days #7 tab.chew 09/11/17 Atorvastatin [Lipitor] 40 mg PO HS 7 Days #7 tablet 09/11/17 Clopidogrel [Plavix] 75 mg PO DAILY 7 Days #7 tablet 09/11/17 Lisinopril [Zestril] 10 mg PO DAILY 7 Days #7 tablet 09/11/17 Metoprolol XL (24 HR) Succ [Toprol 12.5 mg PO DAILY 7 Days #7 09/11/17 Xl] tab.er.24h Nitroglycerin 0.4 mg SL Q5MIN PRN 7 Days #7 09/11/17 tab.subl Allergies Allergy/AdvReac Type Severity Reaction Status Date / Time [place] Allergy Hives Verified 01/28/18 21:38 diltiazem [From Cardizem] Allergy Hives Verified 01/28/18 21:38 latex Allergy Hives Verified 01/28/18 21:38 pollen extracts Allergy Hives Verified 01/28/18 21:38 soybean Allergy Hives Verified 01/28/18 21:38 Past Medical History - Past Medical History Medical history: Reports: coronary artery disease Surgical history: Reports: angioplasty/stent, coronary bypass (CABG), herniorrhaphy Psychiatric history: Reports: no psych history - Social History Smoking Status: Current every day smoker Smokeless Tobacco Status: No Alcohol use: Reports: rarely Drug use: Reports: none Course Vital Signs Temperature 97.4 F L 01/28/18 21:23 Pulse Rate 60 01/28/18 21:23 Respiratory Rate 21 01/28/18 21:23 Blood Pressure 129/96 01/28/18 21:23 O2 Sat by Pulse Oximetry 100 01/28/18 21:23 Temperature 97.4 F L 01/28/18 21:23 Pulse Rate 65 01/28/18 22:12 Respiratory Rate 17 01/28/18 22:06 Blood Pressure 134/91 01/28/18 22:12 O2 Sat by Pulse Oximetry 97 01/28/18 22:12 Oxygen Delivery Oxygen Delivery Room Air Medical Decision Making - Lab Data Result diagrams: 01/28/18 21:37 01/28/18 21:37 Lab Results 01/28/18 01/28/18 01/28/18 Range/Units 21:37 21:37 21:37 WBC 13.6 H (4.3-11.1) K/mcL RBC 5.16 (4.19-5.50) M/mcL Hgb 16.0 (12.9-16.9) g/dL Hct 46.4 (37.5-50.1) % MCV 89.9 (83.0-100.0) fL MCH 31.0 (28.0-33.3) pg MCHC 34.5 (31.6-35.5) g/dL RDW 13.3 (11.5-14.5) % Plt Count 189 (140-400) K/mcL MPV 11.7 (9.4-12.4) fL Immature Gran % 0.6 (0-4) % Seg Neutrophils % 67.8 % Lymphocytes % 20.4 % Monocytes % 8.5 % Eosinophils % 2.3 % Basophils % 0.4 % Neutrophils # 9.3 H (1.6-8.9) K/mcL Lymphocytes # 2.8 (0.6-4.6) K/mcL Monocytes # 1.2 (0.0-1.3) K/mcL Eosinophils # 0.3 (0.0-0.6) K/mcL Basophils # 0.1 (0.0-0.2) K/mcL PT 12.2 H (9.4-12.1) Seconds INR 1.1 APTT 30.1 (26.0-36.0) Seconds Sodium 136 (136-145) mEq/L Potassium 3.7 (3.5-5.1) mEq/L Chloride 105 (98-107) mEq/L Carbon Dioxide 22 L (23-29) mEq/L BUN 11 (6-20) mg/dL Creatinine 0.67 L (0.70-1.30) mg/dL Est GFR ( Amer) > 60 (> 60) Est GFR (Non-Af Amer) > 60 (> 60) BUN/Creatinine Ratio 16 (6-26) Glucose 132 H (70-105) mg/dL Calculated Osmolality 283 (280-300) Calcium 9.6 (8.6-10.3) mg/dL Troponin I 1.26 H* (< 0.04) ng/mL Critical Care Time Critical Care Time: Yes Total Critical Care Time: 35 Attestation: Critical care performed: Time is exclusive of separately billable procedures. Time includes: direct patient care, patient reassessment, coordination of patient care, interpretation of data (laboratory data, radiology data, and respiratory data), review of patient's medical records, medical consultation and documentation of patient care. Procedures included in critical care time: Procedures excluded from critical care time: Attestation Statement - Attestation Attestation: I examined this patient and my medical decision-making was reviewed with the Resident Physician. I agree with the documented findings, disposition and treatment plan as described except to the extent set forth below. Patient presents to the ED with chest pain. Onset at noon. Onset arrest. Substernal radiating to his back. Cardiac history of quadruple bypass and multiple stents, the last of which was in August. Patient's mildly diaphoretic but in no distress on exam. Lungs with expiratory wheezing. Plan. Patient with mild lateral elevations. Anteroseptal depressions. Posteriorly replaced. He has some very slight elevations in 3 through 6. We will discuss with cardiology. STEMI alert called. Patient was evaluated in the department by interventional cardiology. Patient discharged to catheter lab. Aspirin heparin imbalance were given.
[2018-01-28] MEDS ORDERED: *HR* Ticagrelor 90 MG TABLET ONE (21:35)
[2018-01-28] MEDS ORDERED: Aspirin 81 MG TAB.CHEW ONE (21:35)
[2018-01-28] MEDS ORDERED: *HR* Heparin 5,000 UNIT/ML VIAL ONE (21:35)
[2018-01-28] MEDS ORDERED: 0.9 % Sodium Chloride 1,000 ML ONE ×2 (21:35→21:59)
[2018-01-28] MEDS ORDERED: *HR* Ticagrelor 90 MG TABLET PO ONE (21:36)
[2018-01-28] MEDS ORDERED: *HR* Heparin 5,000 UNIT/ML VIAL IVP ONE (21:36)
[2018-01-28] MEDS ORDERED: Aspirin 81 MG TAB.CHEW PO ONE (21:36)
[2018-01-28] MEDS ORDERED: *HR* Heparin 5,000 UNIT/ML VIAL IVP PRN ×2 (21:36)
--- NOTE | 2018-01-28 21:41 | Emergency Department Note ---
Disposition Clinical Impression: Elevated troponin Chest pain Qualifiers: Chest pain type: unspecified Qualified Code(s): R07.9 - Chest pain, unspecified STEMI (ST elevation myocardial infarction) Qualifiers: Involved coronary artery: right coronary artery Qualified Code(s): I21.11 - ST elevation (STEMI) myocardial infarction involving right coronary artery Disposition: Admitted As Inpatient Condition: Serious Referrals: NONE,PCP [Non-Partnered Physician] - Time of Disposition: 22:40 General Adult HPI - General Chief complaint: ED Chest Pain Stated complaint: Cp Time Seen by Provider: 01/28/18 21:13 Source: patient Mode of arrival: ambulatory Limitations: no limitations Nursing Notes Reviewed: Yes Vital Signs Reviewed: Yes - History of Present Illness HPI Narrative: Patient is a 57-year-old male that presents emergency Department with chest pain. Patient states this been ongoing for approximately 8-9 hours. Patient states that his chest pain is located in the center left side of his chest. Patient has any radiation of his pain. Patient states that he is not short of breath or nauseated. Patient does state that he has a previous cardiac history and has had multiple stents and coronary bypass. Patient states that he has not taken any nitroglycerin or aspirin at this time. Patient states that he has not taken any aspirin due to her being on Plavix and having open wound on his abd omen. Pain Scale: 0 - Related Data Home Medications Medication Instructions Recorded Confirmed Loratadine [Claritin] 10 mg PO DAILY 09/09/17 01/28/18 Omeprazole [PriLOSEC] 40 mg PO DAILY 09/09/17 01/28/18 OxyCODONE/APAP 5/325 [Percocet 1 tab PO Q6HR PRN 09/09/17 01/28/18 5/325 MG] Albuterol Sulfate [Proair Hfa] 2 puff IH Q4H PRN 01/28/18 01/28/18 Previous Rx's Medication Instructions Recorded Aspirin 81 mg PO DAILY 7 Days #7 tab.chew 09/11/17 Atorvastatin [Lipitor] 40 mg PO HS 7 Days #7 tablet 09/11/17 Clopidogrel [Plavix] 75 mg PO DAILY 7 Days #7 tablet 09/11/17 Lisinopril [Zestril] 10 mg PO DAILY 7 Days #7 tablet 09/11/17 Metoprolol XL (24 HR) Succ [Toprol 12.5 mg PO DAILY 7 Days #7 09/11/17 Xl] tab.er.24h Nitroglycerin 0.4 mg SL Q5MIN PRN 7 Days #7 09/11/17 tab.subl Allergies Allergy/AdvReac Type Severity Reaction Status Date / Time [place] Allergy Hives Verified 01/28/18 21:38 diltiazem [From Cardizem] Allergy Hives Verified 01/28/18 21:38 latex Allergy Hives Verified 01/28/18 21:38 pollen extracts Allergy Hives Verified 01/28/18 21:38 soybean Allergy Hives Verified 01/28/18 21:38 All systems ED: reviewed and negative except as stated. Constitutional: Denies: fever Cardiovascular: Reports: chest pain Respiratory: Denies: dyspnea Gastrointestinal: Denies: abdominal pain, nausea, vomiting Past Medical History - Past Medical History Medical history: Reports: coronary artery disease Surgical history: Reports: angioplasty/stent, coronary bypass (CABG), herniorrhaphy Psychiatric history: Reports: no psych history - Social History Smoking Status: Current every day smoker Smokeless Tobacco Status: No Alcohol use: Reports: rarely Drug use: Reports: none Physical Exam - General Limitations: no limitations General appearance: alert, in no apparent distress - Head Head exam: atraumatic, normocephalic - Neck Neck exam: Present: normal inspection, full ROM, trachea midline - Respiratory Respiratory exam: Present: normal lung sounds bilaterally. Absent: respiratory distress, wheezes - Cardiovascular Cardiovascular exam: Present: regular rate, normal rhythm, normal heart sounds, +S1, +S2 - Abdominal Exam Abdominal exam: Present: soft, Non-Tender, normal bowel sounds - Neurological Exam Neurological exam: Present: alert, oriented X3 - Psychiatric Psychiatric exam: Present: normal affect, normal mood - Skin Skin exam: Present: warm, dry, intact Course Vital Signs Temperature 97.4 F L 01/28/18 21:23 Pulse Rate 60 01/28/18 21:23 Respiratory Rate 21 01/28/18 21:23 Blood Pressure 129/96 01/28/18 21:23 O2 Sat by Pulse Oximetry 100 01/28/18 21:23 Temperature 97.4 F L 01/28/18 21:23 Pulse Rate 65 01/28/18 22:12 Respiratory Rate 17 01/28/18 22:06 Blood Pressure 134/91 01/28/18 22:12 O2 Sat by Pulse Oximetry 97 01/28/18 22:12 Oxygen Delivery Oxygen Delivery Room Air Medical Decision Making - MDM Narrative Medical decision making narrative: Due the patient presenting to the emergency department with chest pain and EKG be concerning for possible STEMI posterior EKG was obtained due to there being depressions in the anterior leads. There is concern for a STEMI. STEMI alert was called and discussion was had with Dr. Augustin the on-call mapping pilot. He stated that he would come and see the patient. We will order aspirin Brilinta and heparin. Patient will likely need a catheterization. Laboratory workup including CBC, BMP, troponin are pending at this time. Patient's troponin was 1.26. Patient did have a mildly elevated white count. Patient was taken to the [facility] by Dr. Augusitn the on-call mapping pilot. The patient will need to be admitted to the hospital for further evaluation and management after his catheterization. The patient was admitted under Dr. Augustin service. Patient's chest x-ray was suggestive of pulmonary ed peg. Patient will be admitted to the hospital after the completion of his catheterization. - Lab Data Result diagrams: 01/28/18 21:37 01/28/18 21:37 Lab Results 01/28/18 01/28/18 01/28/18 Range/Units 21:37 21:37 21:37 WBC 13.6 H (4.3-11.1) K/mcL RBC 5.16 (4.19-5.50) M/mcL Hgb 16.0 (12.9-16.9) g/dL Hct 46.4 (37.5-50.1) % MCV 89.9 (83.0-100.0) fL MCH 31.0 (28.0-33.3) pg MCHC 34.5 (31.6-35.5) g/dL RDW 13.3 (11.5-14.5) % Plt Count 189 (140-400) K/mcL MPV 11.7 (9.4-12.4) fL Immature Gran % 0.6 (0-4) % Seg Neutrophils % 67.8 % Lymphocytes % 20.4 % Monocytes % 8.5 % Eosinophils % 2.3 % Basophils % 0.4 % Neutrophils # 9.3 H (1.6-8.9) K/mcL Lymphocytes # 2.8 (0.6-4.6) K/mcL Monocytes # 1.2 (0.0-1.3) K/mcL Eosinophils # 0.3 (0.0-0.6) K/mcL Basophils # 0.1 (0.0-0.2) K/mcL PT 12.2 H (9.4-12.1) Seconds INR 1.1 APTT 30.1 (26.0-36.0) Seconds Sodium 136 (136-145) mEq/L Potassium 3.7 (3.5-5.1) mEq/L Chloride 105 (98-107) mEq/L Carbon Dioxide 22 L (23-29) mEq/L BUN 11 (6-20) mg/dL Creatinine 0.67 L (0.70-1.30) mg/dL Est GFR ( Amer) > 60 (> 60) Est GFR (Non-Af Amer) > 60 (> 60) BUN/Creatinine Ratio 16 (6-26) Glucose 132 H (70-105) mg/dL Calculated Osmolality 283 (280-300) Calcium 9.6 (8.6-10.3) mg/dL Troponin I 1.26 H* (< 0.04) ng/mL
[2018-01-28] MEDS ORDERED: Heparin 25,000 UNIT/500 ML D5W 25,000 UNIT/500 ML BAG IVC SCH (21:45)
[2018-01-28 21:53] LABS: Basophils # 0.1 K/mcL (0.0-0.2); Basophils % 0.4 %; Eosinophils # 0.3 K/mcL (0.0-0.6); Eosinophils % 2.3 %; Hematocrit 46.4 % (37.5-50.1); Immature Granulocytes % 0.6 % (0-4); Lymphocytes # 2.8 K/mcL (0.6-4.6); Lymphocytes % 20.4 %; Mean Corpuscular HGB Conc 34.5 g/dL (31.6-35.5); Mean Corpuscular Volume 89.9 fL (83.0-100.0); Mean Platelet Volume 11.7 fL (9.4-12.4); Monocytes # 1.2 K/mcL (0.0-1.3); Monocytes % 8.5 %; Neutrophils # 9.3 K/mcL (1.6-8.9); Platelet Count 189 K/mcL (140-400); Red Blood Count 5.16 M/mcL (4.19-5.50); Red Cell Distribution Width 13.3 % (11.5-14.5); Segmented Neutrophils % 67.8 %
[2018-01-28] MEDS ORDERED: ISOVUE-370 200 ML INFUS..BTL ONE ×2 (21:59→23:20)
[2018-01-28] MEDS ORDERED: *HR* Heparin 10,000 UNIT/10 ML VIAL ONE ×2 (21:59→22:54)
[2018-01-28] MEDS ORDERED: Heparin 1,000 UNITS/500 mL 500 ML ONE (21:59)
[2018-01-28] MEDS ORDERED: *HR* Nitroprusside 50 MG VIAL IVC ONE (21:59)
[2018-01-28] MEDS ORDERED: 0.9 % Sodium Chloride Mini Bag 100 ML ONE (21:59)
[2018-01-28 22:00] LABS: INR 1.1; Prothrombin Time 12.2 Seconds (9.4-12.1)
[2018-01-28] MEDS ORDERED: 0.9 % Sodium Chloride 1,000 ML IVC SCH (22:00)
[2018-01-28] MEDS ORDERED: Nitroglycerin 1,000 MCG/10 ML VIAL IV ONE (22:00)
[2018-01-28 22:03] LABS: Activated Partial Thrombo Time 30.1 Seconds (26.0-36.0)
[2018-01-28] MEDS ORDERED: *HR* FentaNYL (PF) 100 MCG/2 ML VIAL IVP ONE (22:03)
[2018-01-28] MEDS ORDERED: D5% in Water 1,000 ML IVC ONE (22:03)
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
[2018-01-28] MEDS ORDERED: *HR* Midazolam HCl 2 MG/2 ML VIAL ONE (22:20)
[2018-01-28] MEDS ORDERED: *HR* FentaNYL (PF) 100 MCG/2 ML VIAL ONE (22:21)
--- NOTE | 2018-01-28 22:21 | Pre-Sedation Evaluation ---
Pre-sedation evaluation - Pre-sedation checklist Date of procedure: 01/28/18 Procedure: [facility] Recent Vitals: Last Vital Signs Temp 97.4 F L 01/28/18 21:23 Pulse 65 01/28/18 22:12 Resp 17 01/28/18 22:06 BP 134/91 01/28/18 22:12 Pulse Ox 97 01/28/18 22:12 H&P (including ROS) documented in medical record: Yes Previous reaction to sedatives/anesthetics: No Dietary Status: NPO after Midnight Dentition: No loose teeth or bridges ASA Classification *see protocol: CLASS II-Mild systemic disease Cardiac Registry (Cardio Only) - Functional Capacity Functional Capacity: >=4 METS with symptoms - Clincal Frailty Scale Clinical Frailty Scale: Vulnerable
[2018-01-28 22:22] LABS: BUN/Creatinine Ratio 16 (6-26); Blood Urea Nitrogen 11 mg/dL (6-20); Calcium 9.6 mg/dL (8.6-10.3); Carbon Dioxide 22 mEq/L (23-29); Chloride 105 mEq/L (98-107); Glucose 132 mg/dL (70-105); Osmolality,Calculated 283 (280-300); Potassium 3.7 mEq/L (3.5-5.1); Sodium 136 mEq/L (136-145); eGFR For Non-African Americans > 60 (> 60)
[2018-01-28 22:27] LABS: Troponin I 1.26 ng/mL (< 0.04)
[2018-01-28] MEDS ORDERED: Tirofiban 12.5 MG/250ML 12.5 MG/250 ML BAG ONE (22:33)
[2018-01-28] MEDS ORDERED: *HR* Morphine 2 MG/ML SYRINGE ONE (22:52)
[2018-01-28] MEDS ORDERED: Nitroglycerin 25 MG/250 ML INFUS..BTL IVC ONE (23:09)
--- NOTE | 2018-01-28 23:54 | Invasive Diagnostic Lab Proc ---
Name: Raúl Calabrese Date of Study: 01/28/2018 Date: 1960 Ht: 70.1in Medical Record#: [id number] Age: 57 Wt: 216.05lb Gender: Male BSA: 2.16 Order #: [id number] BMI: 30.93 Physicians Procedure Physician: Amna Augustin MD Referring MD: Referring MD: Staff Name Position Time In Bel[place]in dye RN Monitor 10:23 PM Peter Powell RN Supervisor Porcelain Department 10:23 PM Nicolasa Chisholm RT (R) Scrub 10:23 PM Indications Indication STEMI Procedures Performed Procedure PRQ CARD REVASC CA 1 VSL L HRT ART/GRFT ANGIO Pre-Procedure Checklist Pt not NPO for procedure and MD aware. Blood Pressure: 132/88 Plan of Care Patient will tolerate the procedure without complications. Adequate level of comfort will be maintained. Hemodynamics will remain stable Patient will recover from procedure without complications. Respiratory function will be maintained. Cardiac rhythm will remain stable. Patient temperature will be maintained. Patient and/or family have verbalized understanding of the procedure. Patient Education Allergies pollen extracts [place] soybean latex Penicillin diltiazem Calcium Channel Shilpa Vital Signs Time BP (mmHg) HR (bpm) O2 Sat. RR (bpm) LOC 10:25 PM 142 / 89 67 92 % 15 10:30 PM 148 / 93 68 92 % 21 10:35 PM 136 / 83 68 94 % 21 10:40 PM 140 / 78 68 94 % 19 10:45 PM 120 / 85 62 95 % 20 10:50 PM 127 / 85 61 95 % 22 10:55 PM 122 / 71 69 93 % 14 11:00 PM 126 / 74 62 96 % 16 11:05 PM 129 / 87 60 94 % 27 11:10 PM 123 / 75 62 95 % 26 11:15 PM 124 / 79 63 95 % 23 11:19 PM 125 / 69 62 94 % 21 11:20 PM 122 / 84 62 95 % 23 11:25 PM 124 / 75 63 95 % 25 Procedural Medications Time Medication Dose Units Method Given By 10:28 PM Lidocaine 2% 9 ml Subcutaneous Amna Augustin MD 10:25 PM Oxygen 2 L/min nasal cannula Peter Powell RN 10:30 PM Versed 1 mg Intravenous Peter Powell RN 10:30 PM Fentanyl 25 mcg Intravenous Peter Powell RN 10:33 PM Heparin 5000 units Intravenous Peter Powell RN 10:35 PM Aggrastat Bolus: 50 ml Intravenous Peter Powell RN 10:35 PM Aggrastat 12.5mg/250ml 18 ml/hr Intravenous Peter Powell RN 10:36 PM Nipride 25 mcg Intracoronary MoussColin saini MD 10:37 PM Nipride 50 mcg Intracoronary Moussparveen, Colin WINTER 10:42 PM Nipride 50 mcg Intracoronary Moussa, Colin WINTER 10:42 PM Fentanyl 50 mcg Intravenous Peter Powell RN 10:44 PM Nipride 75 mcg Intracoronary MoussaColin MD 10:44 PM Nitroglycerin 200 mcg Intracoronary Moussa, Colin WINTER 10:48 PM Nipride 100 mcg Intracoronary MoussaColin MD 10:50 PM Nitroglycerin 200 mcg Intracoronary MoussaColin MD 10:51 PM Heparin 1000 units IntraCoronary MoussaColin MD 10:52 PM Morphine 1 mg Intravenous Peter Powell RN 10:52 PM Nipride 50 mcg Intracoronary Moussa, Colin WINTER 10:53 PM Heparin 1000 units Intravenous Peter Powell RN 10:54 PM Nipride 100 mcg Intracoronary Moussa, Colin WINTER 11:02 PM Nipride 100 mcg Intracoronary MoussaColin MD 11:02 PM Nitroglycerin 100 mcg Intracoronary MoussColin saini MD 11:07 PM Heparin 1000 units IntraCoronary MoussaColin MD 11:07 PM Morphine 1 mg Intravenous Peter Powell RN 11:08 PM Nipride 100 mcg Intracoronary MoussaColin MD 11:10 PM Nipride 150 mcg Intracoronary MoussaColin MD 11:15 PM Nitroglycerin 10 mcg/min Intravenous Peter Powell RN [place] Score Preprocedure Postprocedure Activity 2- Moves 4 extremities sustained head lift Activity 2- Moves 4 extremities sustained head lift Circulation 2- SBP +/= 20 points of pre-anesthetic level Circulation 2- SBP +/= 20 points of pre-anesthetic level Consciousness 2- Awake and alert oriented x 3 Consciousness 2- Awake and alert oriented x 3 O2 Saturation 2- Able to maintain O2 satruation of 92% on room air O2 Saturation 2- Able to maintain O2 satruation of 92% on room air Respiratory 2- Able to deep breathe and cough well Respiratory 2- Able to deep breathe and cough well Total Score 10 Total Score 10 Contrast Agent: Isovue Diagnostic Contrast: 169 ml Total Contrast: 169 ml Fluoro Dose: 05620 mGy Activated Clotting Time Time Seconds to Clot 10:33 PM 164 10:53 PM 228 Procedure Log Time Note Enter By 10:08 PM Critical cardiac patient with acute CA was brought emergently to the cardiac lift slab operator for immediate coronary angiography and intervention if clinically indicated. [facility] 10:15 PM Pt arrived to lift slab operator 2 at 22:15 [facility] 10: PM CathStat 10: PM Vitals capture started with the following parameters, Patient=Adult, Interval=5 min, Initial Ywmerpdg=250 mmHg, Deflation Rate=5 mmHg, Cuff placed on Right Arm 10: PM Quin Hollis RN Position: Monitor Time in: : [facility] 10: PM Peter Powell RN Position: Supervisor Porcelain Department Time in: : [facility] 10: PM Nicolasa Chisholm RT (R) Position: Scrub Time in: : [facility] 10: PM Patient charges- Angio tray pack, Navilyst 3mm J, Pulse Oximetry and ACIST tubing and transducer [facility] : PM IV Supplies used: J loop Angio Cath. [facility] : PM Hair removed from procedure site in procedure lab using clippers. Bilateral groin prepped with Chloraprep by Quin Hollis RN, then patient was draped. Skin intact. [facility] 10: PM Physician arrived : [facility] 10: PM Meet and greet completed [facility] : PM Sign in performed according to hospital policy. Informed consent was obtained. [facility] 10:23 PM Procedure start : [facility] 10: PM Vitals capture started with the following parameters, Patient=Adult, Interval=5 min, Initial Cotfmufw=374 mmHg, Deflation Rate=5 mmHg, Cuff placed on Right Arm : PM Time: : Oxygen on at 2 L/min per nasal cannula by Peter Powell RN [facility] 10: PM HR=67 bpm, KWVS=637/89 mmhg, SpO2=92.0 %, Resp=15 B/min 10:25 PM Pressure channel 1 zero failed. 10:25 PM Recorded ECG: HR=65 Condition=Condition 1 10:26 PM Pressure channel 1 zero failed. 10:26 PM Pressure channel 1 zeroed. 10:28 PM Time: 22:28 9 ml Lidocaine 2% to right groin Subcutaneous Given by [facility]na Augustin MD [facility] 10[facility]28 PM Micro-Introducer Kit utilized for sheath placement [email or web address] 10:28 PM Access obtained by percutaneous puncture. 6Fr 10cm Terumo [place] sheath placed in right Femoral artery. [id number] tsoummers 10:29 PM 0.035 145cm Navilyst 3mmJ wire [id number] tsoummers 10:29 PM 6Fr JR 4 Runway guide catheter was used to cannulate the PCI vessel successfully. reused? No tsoummers 10:29 PM wire removed tsoummers 10:29 PM Inflation device was opened. tsoummers 10:30 PM Time: 22:30 Versed 1 mg Intravenous Given by Peter Powell RN [facility] 10:30 PM Time: 22:30 Fentanyl 25 mcg Intravenous Given by Peter Powell RN [facility] 10:30 PM HR=68 bpm, XGSS=913/93 mmhg, SpO2=92.0 %, Resp=21 B/min 10:31 PM Recorded Pressure: Ao, HR=69, Condition=Condition 1 (Aorta) Ao 144/89/111 10:32 PM Recorded Pressure: Ao, HR=68, Condition=Condition 1 (Aorta) Ao 143/86/110 10:32 PM SVG to the RPDA angio performed in multiple views. tsoummers 10:33 PM At 22:33 the ACT was 164 seconds. tsoummers 10:33 PM SVG to the 1st Diagonal angio performed in multiple views. tsoummers 10:33 PM Time: 22:33 Heparin 5000 units Intravenous Given by Peter Powell RN [facility] 10:33 PM .014 [employer] [place] 190cm guide wire across target lesion- successful. reused? No tsoummers 10:34 PM wire crossed, flow restored SVG to Diag tsoummers 10:34 PM Recorded Pressure: Ao, HR=69, Condition=Condition 1 (Aorta) Ao 137/83/106 10:35 PM HR=68 bpm, PKCH=965/83 mmhg, SpO2=94.0 %, Resp=21 B/min 10:35 PM Time: 22:35 Aggrastat Bolus: 50 ml Intravenous Given by Peter Powell RN [place] pump britton 10:35 PM Time: 22:35 Aggrastat 12.5mg/250ml 18 ml/hr Intravenous Given by Peter Powell RN [place] pump britton 10:36 PM Time: 22:36 Nipride 25 mcg Intracoronary Given by Colin Augustin MD 10:37 PM Time: 22:37 Nipride 50 mcg Intracoronary Given by Colin Augustin MD 10:38 PM Recorded Pressure: Ao, HR=72, Condition=Condition 1 (Aorta) Ao 118/72/93 10:39 PM 2.0 mm x 20 mm Emerge Monorail balloon across target lesion- successful. reused? [facility] 10[facility] PM Balloon inflated @ 6 ana for 8 seconds [email or web address] 10:40 PM HR=68 bpm, CMPB=541/78 mmhg, SpO2=94.0 %, Resp=19 B/min 10:40 PM Balloon catheter removed intact. [email or web address] 10:42 PM Time: 22:42 Nipride 50 mcg Intracoronary Given by Colin Augustin MD 10:42 PM Time: 22:42 Fentanyl 50 mcg Intravenous Given by Peter Powell RNherlinda 10:42 PM Lesion found in SVG to 1st Diagonal. Pre Stenosis: 100 Pre JING Flow: 0: No Flow/No perfusion tsoummers 10:44 PM Time: 22:44 Nipride 75 mcg Intracoronary Given by Colin Augustin MD 10:44 PM Time: 22:44 Nitroglycerin 200 mcg Intracoronary Given by Colin Augustin MD 10:45 PM Recorded Pressure: Ao, HR=66, Condition=Condition 1 (Aorta) Ao 125/81/99 10:45 PM HR=62 bpm, FCZE=592/85 mmhg, SpO2=95.0 %, Resp=20 B/min 10:48 PM 3.5mm x 28mm Synergy drug-eluting stent across target lesion- successful Lot #[id number] [facility] 10:48 PM Stent deployed @ 9 ana for 7 seconds britton 10:48 PM Time: 22:48 Nipride 100 mcg Intracoronary Given by Colin Augustin MD 10:48 PM Stent balloon reinflated @ 12 ana for 8 seconds [facility] 10:50 PM HR=61 bpm, WBFN=224/85 mmhg, SpO2=95.0 %, Resp=22 B/min 10:50 PM Time: 22:50 Nitroglycerin 200 mcg Intracoronary Given by Colin Augustin MD 10:52 PM Time: 22:51 Heparin 1000 units IntraCoronary Given by Colin Augustin MD 10:52 PM Time: 22:52 Morphine 1 mg Intravenous Given by Peter Powell RN 10:52 PM Time: 22:52 Nipride 50 mcg Intracoronary Given by Colin Augustin MD 10:53 PM At 22:53 the ACT was 228 seconds. [email or web address] 10:53 PM Time: 22:53 Heparin 1000 units Intravenous Given by Peter Powell RN 10:54 PM Stent delivery system [facility]. [facility] 10[facility] PM Time: 22:54 Nipride 100 mcg Intracoronary Given by Colin Augustin MD 10:55 PM HR=69 bpm, AKQG=148/71 mmhg, SpO2=93.0 %, Resp=14 B/min 11:00 PM Filter wire inserted to target lesion. [facility] 11:00 PM HR=62 bpm, DBUQ=195/74 mmhg, SpO2=96.0 %, Resp=16 B/min 11:00 PM PRONTO extraction catheter pass # 1 for 10 ml total fluid. [facility] 11:02 PM Recorded Pressure: Ao, HR=62, Condition=Condition 1 (Aorta) Ao 137/79/102 11:02 PM Time: 23:02 Nipride 100 mcg Intracoronary Given by Colin Augustin MD 11:02 PM Time: 23:02 Nitroglycerin 100 mcg Intracoronary Given by Colin Augustin MD 11:03 PM pronto catheter removed intact [facility] 11:03 PM pronto catheter reinserted [facility] 11:05 PM HR=60 bpm, AXNX=944/87 mmhg, SpO2=94.0 %, Resp=27 B/min 11:05 PM Recorded Pressure: Ao, HR=60, Condition=Condition 1 (Aorta) Ao 132/81/101 11:06 PM Pronto pass # 2 for 10 ml total fluid. [facility] 11:06 PM pronto removed britton 11:07 PM Time: 23:07 Heparin 1000 units IntraCoronary Given by Colin Augustin MD 11:07 PM Time: 23:07 Morphine 1 mg Intravenous Given by Peter Powell RN 11:08 PM Time: 23:08 Nipride 100 mcg Intracoronary Given by Colin Augustin MD 11:10 PM Time: 23:10 Nipride 150 mcg Intracoronary Given by Colin Augustin MD 11:10 PM HR=62 bpm, VLTE=345/75 mmhg, SpO2=95.0 %, Resp=26 B/min 11:12 PM Guide wire removed intact. marnie 11:12 PM Guide catheter removed intact. marnie 11:12 PM 5Fr IM catheter inserted over the wire [id number] yahir 11:15 PM Time: 23:15 Nitroglycerin 10 mcg/min Intravenous Given by Peter Powell RN [place] [facility] pump [facility] 11:15 PM HR=63 bpm, SHPV=485/79 mmhg, SpO2=95.0 %, Resp=23 B/min 11:17 PM NIBP STAT measurement started. 11:18 PM Recorded Pressure: Ao, HR=63, Condition=Condition 1 (Aorta) Ao 115/80/97 11:19 PM HR=62 bpm, BSFS=799/69 mmhg, SpO2=94.0 %, Resp=21 B/min 11:19 PM Left CATHERINE to the LAD angio performed in multiple views. marnie 11:19 PM Catheter removed britton 11:20 PM 5Fr FL 4 catheter inserted over the wire DN marnie 11:20 PM HR=62 bpm, JDNI=834/84 mmhg, SpO2=95.0 %, Resp=23 B/min 11:21 PM LCA angiography performed in multiple views. marnie 11:21 PM Catheter removed [facility] 11:21 PM 5Fr Pigtail catheter inserted over the wire DNC 11:21 PM Catheter crossed the aortic valve and was selectively placed in the left ventricle. Pressures recorded on pullback for left heart catheterization. [facility] 11:21 PM Bolus angiogram of left Ventricle complete: 10 ml/sec for a total of 20 [facility] 11:23 PM Recorded Pressure: LV, HR=63, Condition=Condition 1 (Left Ventricle) LV 124/23/32 11:23 PM Recorded Pressure: LV, Ao, HR=62, Condition=Condition 1 (Left Ventricle) LV 115/17/31, (Aorta) Ao 116/68/90 11:24 PM Catheter removed [facility] 11:24 PM Bolus angiogram of right Femoral complete: 4 ml/sec for a total of 7 [facility] 11:24 PM Procedure completed at 23:24 01/28/2018[facility] 11:25 PM Did you address JING flow and Dominance? Yes [facility] 11:25 PM Coronary Dominance: right [facility] 11:25 PM HR=63 bpm, RRZD=910/75 mmhg, SpO2=95.0 %, Resp=25 B/min 11: PM Sign out completed: Radiation Dose 1211.49 mGy, 55806 cGy/cm2 Fluoro Time: 14.8 Isovue 370 - 200ml contrast 169 ml given by Amna Augustin MD. Complications: None. The patient was discharged out of the lift slab operator in stable condition. Cardiac Rehab Consult needed: YesConfirmed administered medications: Yes [facility] 11: PM Isovue 370 - 200ml,2 Bottle(s) used. [facility] 11: PM Arterial sheath pulled, Angio-seal closure device used and was Successful [id number] S/N. [facility] 11:27 PM Estimated Blood Loss: less than 50cc [facility] 11:27 PM Post ECG NSR [facility] 11:27 PM Post Blood Pressure 124/75 [facility] 11: PM Information taught Cardiac Cath and PCI [facility] 11:27 PM Education needs Procedure, Plan of Care, and Responsibilities of Patient in Care [facility] 11: PM Learning barriers :None [facility] 11:27 PM Education Methods Verbal [facility] 11:27 PM Education evaluation Able to repeat information [facility] 11:27 PM Site status No bleeding/hematoma - Rt Groin as reported by Nicolasa Chisholm RT (R) at 23:27 [facility] 11:27 PM Opsite applied tsoummers 11:27 PM Plavix, Effient or Brilinta given Yes in ED tsoummers 11:27 PM Delay to floor No tsoummers 11:28 PM Complications: None [facility] 11:28 PM Family placed in consult room. tsoummers 11:32 PM Lesion found in Proximal LAD. Pre Stenosis: 100 Pre JING Flow: 0: No Flow/No perfusion tsoummers 11:32 PM Lesion found in Proximal RCA. Pre Stenosis: 100 Pre JING Flow: 0: No Flow/No perfusion tsoummers 11:32 PM Lesion found in Proximal Circumflex. Pre Stenosis: 100 Pre JING Flow: 0: No Flow/No perfusion tsoummers 11:32 PM Right Coronary, Right Posterior Descending Arteries with Right Posterolateral and Acute Marginal branches with 100 % stenosis. If graft is supplying this area, 0 % stenosis [facility] 11:33 PM Circumflex, Obtuse Marginal, Left Posterior Descending, and Left Posterolateral Coronary Arteries with 100 % stenosis. If graft is supplying this area, 100 % stenosis [facility] 11:33 PM Proximal Left Anterior Descending Coronary Artery with 100% stenosis. If graft is supplying this territory, 0 % stenosis. [facility] 11:41 PM Report given to Tacho ROMEO Pt taken to ICU Room #5. 23:41 [facility] 11:41 PM Patient out of room: 23:41 [facility] Complications Complication None Hemodynamics Pressures Site Systolic/A Wave Diastolic/V Wave Mean AO 144 89 111 AO 143 86 110 AO 137 83 106 AO 118 72 93 AO 125 81 99 AO 137 79 102 AO 132 81 101 AO 115 80 97 LV 124 23 32 LV 115 17 31 AO 116 68 90 Post Procedure Information Blood Pressure: 124/75 mmHg Rhythm: NSR Post procedural instructions were given Closure Device Time Device Success/Fail 01/28/2018 11:26:00 PM Angio-Seal VIP Successful Site Checks Time Location Status Staff Sheath In? Note 11:27 PM Rt Groin No bleeding/hematoma Nicolasa Chisholm RT (R) Pulses Updated by Quin Hollis RN on 01/28/2018 11:49:21 PM electronically signed on 01/28/2018 11:50:02 PM with status of Final
[2018-01-29] MEDS: Tirofiban 12.5 MG/250ML 12.5 MG/250 ML BAG IVC SCH ×2 (00:18→09:17)
[2018-01-29] MEDS ORDERED: Furosemide 40 MG/4 ML VIAL IVP ONE (01:38)
[2018-01-29] MEDS ORDERED: Ipratropium/Albuterol Neb 3 ML IH PRN (01:39)
[2018-01-29] MEDS: *HR* FentaNYL (PF) 100 MCG/2 ML VIAL IVP PRN ×2 (01:53→17:33)
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
[2018-01-29] MEDS: Nitroglycerin 25 MG/250 ML INFUS..BTL IVC SCH (02:36)
[2018-01-29 04:52] LABS: Basophils # 0.1 K/mcL (0.0-0.2); Basophils % 0.5 %; Eosinophils # 0.2 K/mcL (0.0-0.6); Eosinophils % 1.4 %; Hematocrit 46.1 % (37.5-50.1); Immature Granulocytes % 0.5 % (0-4); Lymphocytes # 1.9 K/mcL (0.6-4.6); Mean Corpuscular HGB Conc 34.7 g/dL (31.6-35.5); Mean Corpuscular Hemoglobin 31.2 pg (28.0-33.3); Mean Corpuscular Volume 89.9 fL (83.0-100.0); Mean Platelet Volume 11.5 fL (9.4-12.4); Monocytes # 1.2 K/mcL (0.0-1.3); Monocytes % 7.7 %; Platelet Count 189 K/mcL (140-400); Red Blood Count 5.13 M/mcL (4.19-5.50); Red Cell Distribution Width 13.7 % (11.5-14.5); Segmented Neutrophils % 77.9 %
[2018-01-29 05:24] LABS: BUN/Creatinine Ratio 18 (6-26); Blood Urea Nitrogen 11 mg/dL (6-20); Calcium 9.3 mg/dL (8.6-10.3); Carbon Dioxide 20 mEq/L (23-29); Chloride 104 mEq/L (98-107); Glucose 157 mg/dL (70-105); Osmolality,Calculated 283 (280-300); Potassium 3.6 mEq/L (3.5-5.1); Sodium 135 mEq/L (136-145); eGFR For Non-African Americans > 60 (> 60)
[2018-01-29] MEDS: *HR* Heparin 5,000 UNIT/ML VIAL SQ SCH ×2 (05:52→17:25)
[2018-01-29] MEDS: *HR* Ticagrelor 90 MG TABLET PO SCH ×2 (08:08→19:39)
[2018-01-29] MEDS: Aspirin 81 MG TAB.CHEW PO SCH (08:08)
[2018-01-29] MEDS ORDERED: Perflutren Lipid Microsphere 1.3 ML in 0.9 % Sodium Chloride 8.7 ML IVP ONE (09:52)
--- NOTE | 2018-01-29 12:19 | Cardiology Progress Note ---
Date of Encounter: 01/29/18 Time of Encounter: 10:30 Assessment and Plan (1) STEMI (ST elevation myocardial infarction) Current Visit: Yes Status: Acute Per cardiology: -Admitted for STEMI, taken emergently to the dentures lab technician. Reported had been off of his anti-platelet therapy for one week. -Preliminary report reviewed with PCI to SVG to diagonal, official report pending. -Currently on asa, brilinta, aggrastat drip. -Denies chest pain. -Right groin access site with moderate ecchymosis, no hematoma. Hgb and BP stable. -Will restart BB, will start increased dose of statin. -Discussed with , who recommend aggrastat drip for 24 hours, to be stopped tonight about 2230. -Will continue to monitor. Qualifiers: Involved coronary artery: other coronary artery Qualified Code(s): I21.29 - ST elevation (STEMI) myocardial infarction involving other sites (2) Pulmonary edema Current Visit: Yes Status: Acute Per cardiology: -episode of flash pulmonary edema this am. -Given IV lasix. -Euvolemic on exam. Off O2, denies shortness of breath. -Currently net negative 1200ml. -Will add oral lasix, -Will continue to monitor. Qualifiers: Chronicity: acute Qualified Code(s): J81.0 - Acute pulmonary edema (3) Ischemic cardiomyopathy Current Visit: Yes Status: Chronic Per cardiology: -Known ICM. -Last TTE 08/2017 with LVEF 45%. -TTE pending. -On BB (toprol). Was on deanne inhibitor in outpateint setting (lisinoprol). -Currently euvolemic. -Restart deanne inhibitor as BP will allow. -Adding oral lasix. (4) NSVT (nonsustained ventricular tachycardia) Current Visit: Yes Status: Acute Per cardiology: -Patient had one 10 beat run of NS VT. -K 3.6. -Will check Mg level. -Oral K replacement given. -BB restarted. Discussion w patient/family: The assessment and plan as outlined above was discussed with the patient who expressed understanding and agreement. All questions were answered. Thank you for involving us in the care of your patient. Please call with any questions. Discussed and reviewed with and . Subjective Principal diagnosis: STEMI Interval history: Patient laying in bed today. Denies chest pain. Denies shortness of breath. States he feels much better today. Objective Vital Signs, Last 4 Hours Pulse Resp BP Pulse Ox 01/29/18 10:00 14 123/71 96 01/29/18 09:00 73 14 121/79 96 General: Conversant, No Apparent Distress HEENT: Atraumatic, Normocephaly, Mucus Membranes Moist Neck: No JVD, Normal carotid pulses Cardiac: Reg Rate and Rhythm, Normal S1 and S2, No Murmur Lungs: Normal Breath Sounds, No Wheeze, Rales, Rhonchi Neuro: Alert and responsive, No focal deficits noted Abdomen: Soft, Non-Tender, Other (Large hernia noted. ) Skin: No rashes noted on visualized skin, Other (Right groin access site with moderate ecchymosis, no hematoma. ) Musculoskeletal: No Chest Wall Tenderness Extremities: No Clubbing, No Cyanosis, No Edema, Normal Pulses Results 01/29/18 04:13 01/29/18 04:13 Lab Results Impressions Chest X-Ray 01/28/18 21:18 IMPRESSION: Findings most compatible with developing pulmonary edema. D/ / Mahesh Andrews MD / Mahesh Andrews MD Interpreting Provider: Mahesh Andrews MD Chest X-Ray 01/29/18 01:47 IMPRESSION: Slight interval worsening of pulmonary edema. D/ / Jasmeet Winter MD / Jasmeet Winter MD Interpreting Provider: Jasmeet Winter MD Active Medications Albuterol/Ipratropium (Duoneb) 3 ml IH [id number] PRN PRN Reason: Shortness Of Breath/Wheezing Stop: 07/31/18 01:40 Aspirin (Aspirin) 81 mg PO DAILY [facility] Stop: 07/31/18 09:01 Last Admin: 01/29/18 08:08 Dose: 81 mg Fentanyl Citrate (Fentanyl (Pf)) 25 mcg IVP Q2H PRN PRN Reason: Pain Stop: 07/31/18 01:46 Last Admin: 01/29/18 01:53 Dose: 25 mcg Heparin Sodium (Porcine) (Heparin) 5,000 unit SQ Q12HCO [facility] Stop: 07/31/18 06:01 Last Admin: 01/29/18 05:52 Dose: 5,000 unit Tirofiban/Sodium Chloride (Aggrastat 12.5 Mg/250 Ml) 12.5 mg in 250 mls @ 17.652 mls/hr IVC .[id number] [facility] Stop: 01/29/18 22:35 Last Admin: 01/29/18 09:17 Dose: 0.15 mcg/kg/min, 17.652 mls/hr Nitroglycerin (Nitroglycerin Premix 25 Mg/250 Ml) 25 mg in 250 mls @ 6 mls/hr IVC .Q24H [facility]; Protocol Stop: 07/31/18 02:31 Last Admin: 01/29/18 02:36 Dose: 10 mcg/min, 6 mls/hr Omeprazole (Prilosec) 40 mg PO 0630 [facility] Stop: 07/31/18 06:31 Last Admin: 01/29/18 05:52 Dose: 40 mg Potassium Chloride (Potassium Chloride) 40 meq PO BID [facility] Stop: 07/31/18 09:31 Last Admin: 01/29/18 10:26 Dose: 40 meq Ticagrelor (Brilinta) 90 mg PO BID [facility] Stop: 07/31/18 09:01 Last Admin: 01/29/18 08:08 Dose: 90 mg Laboratory Tests 01/29/18 01/29/18 04:13 04:13 WBC 15.4 H Potassium 3.6 Creatinine 0.62 L - Imaging and Cardiology Chest Xray: report reviewed Echo: pending Cardiac cath: report reviewed - EKG Interpretation EKG results cardiology: other (Telemetry reviewed with average HR previous 12 hours noted to be 67, SR. PVCs, couplets, one 10 beat run of non-sustained VT noted.) Consult Discharge Plan - Plan Referrals: NONE,PCP [Primary Care Provider] -
[2018-01-29] MEDS ORDERED: Nitroglycerin 0.4 MG TAB.SUBL SL PRN (12:24)
--- NOTE | 2018-01-29 12:30 | Event Note ---
Date of Encounter: 01/29/18 Time of Encounter: 09:15 Hospitalist team consulted today for medical management Consult note provided by overnight hospitalist team PMHx: CAD, CABG, recent pci SVG August 2017, tobacco dependence. Mr Calabrese presented with STEMI s/p LHC after being off of his DAPT regimen for a week. He developed sob overnight with CXR showing pulm edema and no infectious process. He received IV diuresis as per cards and was started on neb treatments. He is awake, resting comfortably on room air without any sob. No cough, wheezing, hemoptysis. Deneis any chest pain, palpitations or pressure. No fevers or chills. He has history of a chronic abd wound (for 8 years) that he does daily dressing changes on himself at home and is asking for it to be changed. no recent changes to wound, no new drainage from baseline or bleeding. gen- alert, awake,appears stated age eyes- pupils equal round cv- reg rate and rhythm, normal s1,s2, no murmurs appreciated, no le edema lungs- ctabl, no wheezing, rhonchi , faint bibasilar crackles crackles, normal resp effort on room air abd- soft, non tender, non distended, + bs, right sided large hernia, reducible skin- midline abd dressing c/d/i. bandage removed with large open wound, no bleeding, no surrounding erythema, scant yellow drainage that he notes to be baseline neuro- AAOx3, CN grossly intact Acute sob and hypoxia with CXR confirming worsened pulm edema in setting of STEMI s/p LHC with intervention, resolved This does not appear to be an infectious process on CXR and pt without any s/s of infection Most recent echo reviewed with DD and EF 45% This appears to be cardiovascular in nature and defer to primary cardiology team regarding diuresis agree with nebs prn and o2 prn STEMI -care/meds as per primary cardiology team Leukocytosis, mild, likely reactive to STEMI, afebrile -CXR without acute infectious process identified -if develops fever would check ua with reflex to cx, wound cx and bl cxs at that time Chronic Abdominal Non Healing wound -pt notes this large open wound has been present for 8 years, he states it is unchanged from baseline and is requesting dressing changes -he does not follow at a wound clinic or with a surgeon for care of this wound, previously followed at [facility] -wound care consult for wound care while in hospital GERD hx- on PPI
[2018-01-29 12:39] LABS: Magnesium 2.1 mg/dL (1.6-2.6)
[2018-01-29] MEDS: Metoprolol XL (24 HR) Succ 25 MG TAB.ER.24H PO SCH (17:26)
[2018-01-29] MEDS: Loratadine 10 MG TABLET PO SCH (17:27)
[2018-01-30] MEDS: Nitroglycerin 25 MG/250 ML INFUS..BTL IVC SCH (03:00)
[2018-01-30] MEDS: *HR* Heparin 5,000 UNIT/ML VIAL SQ SCH ×2 (06:20→17:50)
[2018-01-30] MEDS ORDERED: Furosemide 40 MG TABLET PO SCH (09:00)
[2018-01-30] MEDS: Metoprolol XL (24 HR) Succ 25 MG TAB.ER.24H PO SCH (09:29)
[2018-01-30] MEDS: *HR* Ticagrelor 90 MG TABLET PO SCH ×2 (09:29→20:03)
[2018-01-30] MEDS: Aspirin 81 MG TAB.CHEW PO SCH (09:29)
[2018-01-30] MEDS: Loratadine 10 MG TABLET PO SCH (09:29)
--- NOTE | 2018-01-30 11:10 | Cardiology Progress Note ---
Date of Encounter: 01/30/18 Time of Encounter: 08:00 Assessment and Plan (1) STEMI (ST elevation myocardial infarction) Current Visit: Yes Status: Acute Per cardiology: Admitted for STEMI 01/28/18, taken emergently to the laborer cook house. Reported had been off of his anti-platelet therapy for one week due to running out of medication. Preliminary report reviewed with PCI to SVG to diagonal, official report pending. Currently on asa, brilinta, statin, and beta kalee, Denies chest pain. Right groin access site with moderate ecchymosis, no hematoma. Hgb and BP stable. Importance of DAPT with aspirin and Brilinta uninterrupted for a minimum of 1 year reviewed with patient. Co-pay card placed on chart. Patient voiced understanding. We will plan for step down to telemetry unit today with discharge in the morning. Qualifiers: Involved coronary artery: other coronary artery Qualified Code(s): I21.29 - ST elevation (STEMI) myocardial infarction involving other sites (2) Pulmonary edema Current Visit: Yes Status: Resolved Per cardiology: -episode of flash pulmonary edema 01/29/18. Likely from diastolic dysfunction. TTE shows preserved EF. -Given IV lasix and net negative 2800 ml. -Euvolemic on exam. Off O2, denies shortness of breath. Qualifiers: Chronicity: acute Qualified Code(s): J81.0 - Acute pulmonary edema (3) NSVT (nonsustained ventricular tachycardia) Current Visit: Yes Status: Resolved Per cardiology: -Patient had one 10 beat run and 7 beat run of NSVT 01/29/18. Occasional idioventricular rhythm. -K 3.6. -mg 2.1 -Oral K replacement given. Labs pending for today. -BB restarted 01/29/18. No recurrent NSVT seen overnight or this morning. Continue to monitor telemetry. (4) Ischemic cardiomyopathy Current Visit: Yes Status: Resolved Per cardiology: -Known ICM in the past now resolved. TTE shows EF 55% (prev 45%). Discussed with Dr. Mix who read echo preliminary -Last TTE 08/2017 with LVEF 45%. -On BB (toprol). Was on deanne inhibitor in outpateint setting (lisinoprol). -Currently euvolemic. (5) Open abdominal wall wound Current Visit: No Status: Chronic Chronic abdominal wall wound. Wound care consult placed. Appreciate hospitalist recommendations. Qualifiers: Encounter type: initial encounter Qualified Code(s): S31.109A - Unspecified open wound of abdominal wall, unspecified quadrant without penetration into peritoneal cavity, initial encounter Discussion w patient/family: The assessment and plan as outlined above was discussed with the patient and/or family members who expressed understanding and agreement. All questions were answered. Thank you for involving us in the care of your patient. Please call with any questions. Subjective Principal diagnosis: STEMI Interval history: Mr. Calabrese denies chest pain overnight. No new complaints. Objective Vital Signs, Last 4 Hours Temp Pulse Resp BP Pulse Ox 01/30/18 09:30 71 19 118/84 95 01/30/18 08:30 69 19 113/73 94 01/30/18 07:51 97.6 F 01/30/18 07:35 65 19 114/81 95 General: Conversant, No Apparent Distress HEENT: Atraumatic, Normocephaly, Mucus Membranes Moist Neck: No JVD, Normal carotid pulses Cardiac: Reg Rate and Rhythm, Normal S1 and S2, No Murmur Lungs: Normal Breath Sounds, No Wheeze, Rales, Rhonchi Neuro: Alert and responsive, No focal deficits noted Abdomen: Soft, Non-Tender, Other Skin: No rashes noted on visualized skin Musculoskeletal: No Chest Wall Tenderness Extremities: No Clubbing, No Cyanosis, No Edema, Normal Pulses, Other (Right groin femoral access dressing removed. Old ecchymosis noted. No hematoma. Mild tenderness with palpation.) Results 01/29/18 04:13 01/29/18 04:13 Lab Results 01/29/18 04:13 Magnesium 2.1 - Imaging and Cardiology Echo: report reviewed - EKG Interpretation EKG results cardiology: personally reviewed Consult Discharge Plan - Plan Referrals: NONE,PCP [Primary Care Provider] -
[2018-01-30] MEDS ORDERED: Ipratropium/Albuterol Neb 3 ML IH PRN (14:22)
[2018-01-30] MEDS ORDERED: Nitroglycerin 0.4 MG TAB.SUBL SL PRN (14:22)
--- NOTE | 2018-01-30 14:50 | Internal Med Progress Note ---
Hospitalist Progress Note - Encounter Date of Encounter: 01/30/18 Time of Encounter: 08:50 - Subjective Interval History: awake, no complaints, denies sob, remains off any supplemental o2. no cough, wheezing, fevers or chills. no abd pain and wound dressing changed yesterday, no fevers, chills or chest pain. - Exam Vitals: Temp Pulse Resp BP Pulse Ox 97.6 F 70 18 95/57 95 01/30/18 07:51 01/30/18 13:40 01/30/18 13:40 01/30/18 13:40 01/30/18 13:40 Exam: gen- alert, awake,appears stated age cv- reg rate and rhythm, normal s1,s2, no murmurs appreciated, no le edema lungs- ctabl, no wheezing, rhonchi , clear bases, normal resp effort on room air abd- soft, non tender, non distended,wound dressing c/d/i neuro- AAOx3 - Assessment and Plan (1) Shortness of breath Current Visit: Yes Status: Resolved Assessment and Plan: Acute sob and hypoxia with CXR confirming worsened pulm edema in setting of STEMI s/p LHC with intervention, resolved This does not appear to be an infectious process on CXR and pt without any s/s of infection Most recent echo reviewed with DD and EF 45% This appears to be cardiovascular in nature and defer to primary cardiology team regarding diuresis agree with nebs prn (2) Leukocytosis Current Visit: Yes Status: Acute Assessment and Plan: Leukocytosis, mild, likely reactive to STEMI, afebrile -CXR without acute infectious process identified -if develops fever would check ua with reflex to cx, wound cx and bl cxs at that time (3) Wound, open, abdominal wall, lateral Current Visit: Yes Status: Acute Assessment and Plan: Chronic Abdominal Non Healing wound -pt notes this large open wound has been present for 8 years, he states it is unchanged from baseline and is requesting dressing changes -he does not follow at a wound clinic or with a surgeon for care of this wound, [facility] -wound care consult for wound care while in hospital (4) STEMI (ST elevation myocardial infarction) Current Visit: Yes Status: Acute Assessment and Plan: STEMI, NSVT, Ischemic CM -care/meds as per primary cardiology team DVT Prophylaxis: heparin - Time Spent with Patient Total time spent is greater than 50% in coordination of care (as documented) at patient's floor/unit and/or counseling patient: less than 15 minutes Plan of Care Discussed with: patient Internal Medicine: Result - Labs CBC & Chem 7: 01/29/18 04:13 01/29/18 04:13 - ABG Interpretation ABG results: PT/INR, D-dimer PT 12.2 Seconds (9.4-12.1) H 01/28/18 21:37 Consult Discharge Plan - Plan Referrals: NONE,PCP [Primary Care Provider] - (2) Leukocytosis Qualifiers: Leukocytosis type: unspecified Qualified Code(s): D72.829 - Elevated white blood cell count, unspecified (4) STEMI (ST elevation myocardial infarction) Qualifiers: Involved coronary artery: other coronary artery Qualified Code(s): I21.29 - ST elevation (STEMI) myocardial infarction involving other sites
[2018-01-30] MEDS ORDERED: *HR* HYDROcodone/Acet 5/325 mg TABLET PO ONE (16:55)
[2018-01-31] MEDS: *HR* Heparin 5,000 UNIT/ML VIAL SQ SCH (05:53)
[2018-01-31 06:15] LABS: Basophils # 0.1 K/mcL (0.0-0.2); Basophils % 0.9 %; Eosinophils # 0.4 K/mcL (0.0-0.6); Eosinophils % 3.1 %; Immature Granulocytes % 0.9 % (0-4); Lymphocytes # 2.8 K/mcL (0.6-4.6); Mean Corpuscular HGB Conc 34.8 g/dL (31.6-35.5); Mean Corpuscular Hemoglobin 31.5 pg (28.0-33.3); Mean Corpuscular Volume 90.4 fL (83.0-100.0); Mean Platelet Volume 11.2 fL (9.4-12.4); Monocytes # 1.8 K/mcL (0.0-1.3); Monocytes % 12.8 %; Neutrophils # 8.8 K/mcL (1.6-8.9); Platelet Count 224 K/mcL (140-400); Red Blood Count 5.75 M/mcL (4.19-5.50); Red Cell Distribution Width 13.9 % (11.5-14.5); Segmented Neutrophils % 62.3 %
[2018-01-31 06:34] LABS: BUN/Creatinine Ratio 29 (6-26); Blood Urea Nitrogen 22 mg/dL (6-20); Calcium 10.2 mg/dL (8.6-10.3); Carbon Dioxide 21 mEq/L (23-29); Chloride 105 mEq/L (98-107); Glucose 161 mg/dL (70-105); Osmolality,Calculated 285 (280-300); Potassium 4.6 mEq/L (3.5-5.1); Sodium 134 mEq/L (136-145); eGFR For Non-African Americans > 60 (> 60)
[2018-01-31 06:36] LABS: Hemoglobin 18.1 g/dL (12.9-16.9)
[2018-01-31 07:01] VITALS: BP 107/66
[2018-01-31] MEDS: *HR* Ticagrelor 90 MG TABLET PO SCH (07:56)
[2018-01-31] MEDS ORDERED: Aspirin 81 MG TAB.CHEW PO SCH (09:00)
[2018-01-31] MEDS ORDERED: Loratadine 10 MG TABLET PO SCH (09:00)
[2018-01-31] MEDS ORDERED: Metoprolol XL (24 HR) Succ 25 MG TAB.ER.24H PO SCH (09:00)
[2018-01-31] MEDS ORDERED: Furosemide 40 MG TABLET PO SCH (09:00)
--- NOTE | 2018-01-31 09:57 | Internal Med Progress Note ---
<Robert Cunningham - Last Filed: 01/31/18 13:51> Hospitalist Progress Note - Encounter Date of Encounter: 01/31/18 Time of Encounter: 09:47 - Subjective Interval History: Patient in no acute distress, no events overnight. Denies chest pain or shortness of breath this morning, states he has been pacing in the room as well as sitting in the chair without issue. - Exam Vitals: Temp Pulse Resp BP Pulse Ox 98.0 F 82 16 107/66 96 01/31/18 06:58 01/31/18 06:58 01/31/18 06:58 01/31/18 06:58 01/31/18 05:25 Exam: Alert and oriented x 3, normal affect Cranial nerves 2-12 intact Heart in regular rate and rhythm without murmur or gallop Lungs clear to auscultation bilaterally without wheeze or rhonchi Abdomen soft and nontender with normal bowel sounds, dressing c/d/i Bilateral lower extremities non edematous Skin warm and dry - Assessment and Plan (1) Shortness of breath Status: Resolved Assessment and Plan: Medicine service was consulted for shortness of breath status post left heart catheterization secondary to STEMI Chest x-ray, finals, labs did not indicate infectious process or primary pulmonary etiology History of congestive heart failure and imaging indicated pulmonary edema secondary to congestive heart failure Plan for diuresis was deferred to primary cardiology team Nebulizer treatments were also initiated Patient's shortness of breath resolved and he was saturating and ventilating appropriately on room air No further management from medicine team and we will sign off (2) STEMI (ST elevation myocardial infarction) Status: Resolved Assessment and Plan: STEMI, NSVT, Ischemic CM -care/meds as per primary cardiology team (3) Leukocytosis Status: Acute Assessment and Plan: Leukocytosis, mild, likely reactive to STEMI, afebrile White count improved today from 15-14, patient continues to be afebrile Medicine will sign off (4) Wound, open, abdominal wall, lateral Status: Chronic Assessment and Plan: Chronic Abdominal Non Healing wound -pt notes this large open wound has been present for 8 years, he states it is u nchanged from baseline and is requesting dressing changes -he does not follow at a wound clinic or with a surgeon for care of this wound, [facility] care consult for wound care while in hospital Patient denied follow-up with wound care and states that he would rather care for the wound on his own He was informed of the risks of improper wound care management including infect ion, bleeding At time of exam dressing is clean dry and intact without drainage and the patient does not show erythema or induration or other signs of infection - Time Spent with Patient Total time spent is greater than 50% in coordination of care (as documented) at patient's floor/unit and/or counseling patient: Internal Medicine: Result - Labs CBC & Chem 7: 01/31/18 06:03 01/31/18 06:03 Labs: Short CBC 01/31/18 Range/Units 06:03 WBC 14.2 H (4.3-11.1) K/mcL Hgb 18.1 H D (12.9-16.9) g/dL Hct 52.0 H (37.5-50.1) % Plt Count 224 (140-400) K/mcL Neutrophils # 8.8 (1.6-8.9) K/mcL BMP 01/31/18 06:03 Sodium 134 L Potassium 4.6 Chloride 105 Carbon Dioxide 21 L BUN 22 H Creatinine 0.75 Glucose 161 H Calcium 10.2 - ABG Interpretation ABG results: PT/INR, D-dimer PT 12.2 Seconds (9.4-12.1) H 01/28/18 21:37 - VTE Reasons for not Prescribing Prophylaxis: Not indicated-Anticoagulated or INR therapeutic Consult Discharge Plan - Plan Instructions: Metoprolol (By mouth), Furosemide (By mouth), Ticagrelor (By mouth), Myocardial Infarction (DC), Chronic Hypertension (DC) Additional Instructions: RISK FACTORS: STOP SMOKING: If you smoke, STOP. Smoking or tobacco use significantly increases your risk of heart disease because nicotine causes the arteries to narrow or constrict. It also causes fats to stick to the artery. Your chances of having a heart attack are greatly increased if you continue to smoke. For more information, call the education line for smoking cessation 1-218-SMHTJSG EAT A LOW FAT/CHOLESTEROL/SODIUM DIET: This diet may help reduce your chances of having a heart attack. LIFTING: Avoid lifting anything more than 10 pounds for 5-7 days Prior to straining, laughing, sneezing and/or coughing, apply manual pressure directly over insertion site. ACTIVITY: You may walk or climb stairs as tolerated You can resume sexual activity as tolerated In general, you are encouraged to engage in a minimum of 30 minutes or more of moderate intensity physical activity, such as brisk walking, daily or at least 3-4 times weekly BATHING Do not submerge the site into water (bath tub, hot tub, swimming pool) for 1 week. This can be a source for infection into the blood stream. You may shower after 24 hours SITE CARE: After 24 hours, you may remove the dressing and leave the site open to air. Keep the site clean and dry. Clean gently and pat dry. You can expect bruising and tenderness that gradually resolve within a week or two. Return to work as instructed per your physician Resume driving as instructed per physician Keep all scheduled follow up appointments Resume medications as instructed IMPORTANT: If prescribed a Platelet Aggregation Inhibitor such as, Plavix, Brilinta or Effient: Duration of therapy is minimum one year These medications are often used in combination with Aspirin in prevention of future heart attacks Never discontinue unless consult with your Energy Broker STROKE (CVA) Risk factors for a stroke are: Age, cigarette smoking, diabetes, excessive alcohol consumption, family history, high blood pressure, overweight, physical inactivity, prior stroke, heart attack, diagnosis of carotid artery stenosis or other artery disease. Warning signs: Sudden numbness or weakness of the face, arm or leg; especially on one side of the body, sudden confusion, trouble speaking or understanding, sudden trouble seeing in one or both eyes, sudden trouble walking, dizziness, loss of balance or coordination, sudden severe headache with no cause. Call 911 or go to the Emergency Room. CONGESTIVE HEART FAILURE: If you have been diagnosed with Congestive Heart Failure (CHF) and your symptoms return, make an appointment with your physician Weigh yourself daily. Notify your physician if you have a weight gain of two or more pounds in one day or five or more pounds in one week. If you experience any difficulty breathing, please call 911 BLEEDING: Although the risk of bleeding is minimal, it can happen. If you have any bleeding from the site, apply firm pressure above the puncture site for 10-15 minutes. If the bleeding does not stop, continue manual pressure and call 911 Contact your physician if: You develop a fever greater than 101 degrees Fahrenheit Your site becomes reddened or has any drainage You have an increase in pain or burning at the site or if a large knot forms at the site. If you experience chest pain, shortness of breath, dizziness, or extreme tiredness, stop the activity and rest. Please notify your physicians office if you experience any of these symptoms and they are not relieved by rest please call 911! Referrals: Vicki Carreon MD [Partnered Physician] - (Office will call patient at home with appointment date and time Patients pcp was called and did leave a message with office they will call with patient follow up apt. ) Prescriptions: Furosemide [Lasix] 20 mg PO DAILY #30 tablet Metoprolol XL (24 HR) Succ [Toprol Xl] 12.5 mg PO DAILY #30 tab.er.24h Ticagrelor [Brilinta] 90 mg PO BID #60 tablet <Aarti Cristina - Last Filed: 01/31/18 14:40> Hospitalist Progress Note - Encounter Date of Encounter: 01/31/18 - Exam Vitals: Temp Pulse Resp BP Pulse Ox 98.0 F 82 16 107/66 96 01/31/18 06:58 01/31/18 06:58 01/31/18 06:58 01/31/18 06:58 01/31/18 05:25 - Assessment and Plan (1) Shortness of breath Status: Resolved (2) Leukocytosis Status: Acute (3) Wound, open, abdominal wall, lateral Status: Chronic (4) STEMI (ST elevation myocardial infarction) Status: Resolved - Time Spent with Patient Total time spent is greater than 50% in coordination of care (as documented) at patient's floor/unit and/or counseling patient: Internal Medicine: Result - Labs CBC & Chem 7: 01/31/18 06:03 01/31/18 06:03 Labs: Short CBC 01/31/18 Range/Units 06:03 WBC 14.2 H (4.3-11.1) K/mcL Hgb 18.1 H D (12.9-16.9) g/dL Hct 52.0 H (37.5-50.1) % Plt Count 224 (140-400) K/mcL Neutrophils # 8.8 (1.6-8.9) K/mcL BMP 01/31/18 06:03 Sodium 134 L Potassium 4.6 Chloride 105 Carbon Dioxide 21 L BUN 22 H Creatinine 0.75 Glucose 161 H Calcium 10.2 - ABG Interpretation ABG results: PT/INR, D-dimer PT 12.2 Seconds (9.4-12.1) H 01/28/18 21:37 - Attending Attestation I examined this patient and my medical decision-making was reviewed with the Resident Physician Dr Cunningham. I agree with the documented findings, disposition and treatment plan as described except to the extent set forth below. Mr Puentes was aditted by cardiology for stemi and is pot cath with intervention. Medicine followed for some sob on first night of hospitaization which has since resolved and was due to post stemi pulm edema. awake, alert, remains on room air and without complaints. no sob, wheezing, cough, le edema no abd pain, change in chronic wound. no fevers or chills gen- alert, awake,appears stated age cv- reg rate and rhythm, normal s1,s2, no murmurs appreciated, no le edema lungs- ctabl, no wheezing, rhonchi , clear bases, normal resp effort on room air abd- soft, non tender, non distended,wound dressing c/d/i neuro- AAOx3 sob 2/2 pulm edema s/p stemi - resolved, no infectious process, o2 sats stable room air, diuretic as per cards at [place] stemi- deferred to cardiology primary service leukocytosis likely reactive post stemi, downtrending, afebrile abd wound, chronic, unchanged per pt- he routienly refused assistance with wound care, he will only fu with pcp [place] and declines any further assistance internal medicine will sign off <Robert Cunningham - Last Filed: 01/31/18 13:51> (2) STEMI (ST elevation myocardial infarction) Qualifiers: Involved coronary artery: other coronary artery Qualified Code(s): I21.29 - ST elevation (STEMI) myocardial infarction involving other sites (3) Leukocytosis Qualifiers: Leukocytosis type: unspecified Qualified Code(s): D72.829 - Elevated white blood cell count, unspecified (4) Wound, open, abdominal wall, lateral Qualifiers: Encounter type: initial encounter Qualified Code(s): S31.109A - Unspecified open wound of abdominal wall, unspecified quadrant without penetration into peritoneal cavity, initial encounter <Aarti Cristina - Last Filed: 01/31/18 14:40> (2) Leukocytosis Qualifiers: Leukocytosis type: unspecified Qualified Code(s): D72.829 - Elevated white blood cell count, unspecified (3) Wound, open, abdominal wall, lateral Qualifiers: Encounter type: initial encounter Qualified Code(s): S31.109A - Unspecified open wound of abdominal wall, unspecified quadrant without penetration into haritha toneal cavity, initial encounter (4) STEMI (ST elevation myocardial infarction) Qualifiers: Involved coronary artery: other coronary artery Qualified Code(s): I21.29 - ST elevation (STEMI) myocardial infarction involving other sites
--- NOTE | 2018-01-31 11:00 | Discharge Summary ---
Orders not resulted at time of discharge: Pending orders 01/29/18 07:00 ECG 12 lead ECG [ECG] Routine Date of Encounter: 01/31/18 Time of Encounter: 10:00 - Discharge Diagnosis (1) STEMI (ST elevation myocardial infarction) Priority: Primary Status: Acute Qualifiers: Involved coronary artery: other coronary artery Qualified Code(s): I21.29 - ST elevation (STEMI) myocardial infarction involving other sites (2) Pulmonary edema Priority: Primary Status: Acute Qualifiers: Chronicity: acute Qualified Code(s): J81.0 - Acute pulmonary edema (3) NSVT (nonsustained ventricular tachycardia) Priority: Primary Status: Acute (4) Open abdominal wall wound Priority: Secondary Status: Chronic Qualifiers: Encounter type: subsequent encounter Qualified Code(s): S31.109D - Unspecified open wound of abdominal wall, unspecified quadrant without pen etration into peritoneal cavity, subsequent encounter - Hospital Course Hospital course: Mr. Calabrese is a 57 year old male who presented with chest pain and was found to have STEMI. He was taken to the cardiac catheterization lab emergently and received PCI to his SVG-1st diagonal graft with no complication. He was s/p PCI SVG to RPDA in August. LHC showed SVG to rPDA stent was patent, FRIEND-LAD was paten, SVG-OM was occluded. Unfortunately, he did stop taking plavix a couple weeks ago due to running out. After his procedure he developed short runs of N SVT that resolved after 24 hours. He also developed pulmonary edema secondary to diastolic dysfunction and received IV lasix with good results. He was started on oral lasix and given potassium replacement. He will be discharged on maintenance lasix. TTE shows EF 50-55%. EF improved since August. Hospitalist consulted for elevated WBC to r/o PNA. CXR and finding reviewed by hospitalist and PNA was not suspected. Pt also noted to have chronic abdominal wound for the last several years. Wound care was consulted to assist with dressing changes. Importance of DAPT was asa and brilinta uninterrupted for min one year reviewed with patient and he voiced understanding. Continue bb and statin. Lisinopril was not restarted secondary to low b/p. - Time Spent with Patient Total time spent providing and/or coordinating discharge services: Greater than 30 minutes (d/c summary, med rec, teaching.) - Discharge Medications Prescriptions: Furosemide [Lasix] 20 mg PO DAILY #30 tablet Metoprolol XL (24 HR) Succ [Toprol Xl] 12.5 mg PO DAILY #30 tab.er.24h Ticagrelor [Brilinta] 90 mg PO BID #60 tablet Home Medications: Loratadine [Claritin] 10 mg PO DAILY 09/09/17 [History] Omeprazole [PriLOSEC] 40 mg PO DAILY 09/09/17 [History] OxyCODONE/APAP 5/325 [Percocet 5/325 MG] 1 tab PO Q6HR PRN 09/09/17 [History] Aspirin 81 mg PO DAILY 7 Days #7 tab.chew 09/11/17 [Rx] Metoprolol XL (24 HR) Succ [Toprol Xl] 12.5 mg PO DAILY 7 Days #7 tab.er.24h 09/11/17 [Rx] Nitroglycerin 0.4 mg SL Q5MIN PRN 7 Days #7 tab.subl 09/11/17 [Rx] Albuterol Sulfate [Proair Hfa] 2 puff IH Q4H PRN 01/28/18 [History] Atorvastatin [Lipitor] 40 mg PO HS #30 tablet 01/31/18 [Rx] Furosemide [Lasix] 20 mg PO DAILY #30 tablet 01/31/18 [Rx] Metoprolol XL (24 HR) Succ [Toprol Xl] 12.5 mg PO DAILY #30 tab.er.24h 01/31/18 [Rx] Ticagrelor [Brilinta] 90 mg PO BID #60 tablet 01/31/18 [Rx] Allergies/Adverse Reactions: Allergy/AdvReac Type Severity Reaction Status Date / Time [place] Allergy Hives Verified 01/28/18 21:38 diltiazem [From Cardizem] Allergy Hives Verified 01/28/18 21:38 latex Allergy Hives Verified 01/28/18 21:38 pollen extracts Allergy Hives Verified 01/28/18 21:38 soybean Allergy Hives Verified 01/28/18 21:38 Date of admission: 01/30/18 17:01 Primary care physician: PCP NONE Consults: 01/28/18 23:37 Consult to Cardiac Rehabilitation-Phase1 [CONS] Routine Comment: Reason for Consult: AMI Call Completed: Yes Consult to Nurse Navigator [CONS] Routine Comment: 01/29/18 01:38 Consult to Hospitalist [CONS] Routine Consulting Provider: Hospitalist Tanya Reason for Consult: medical management Call Completed: Yes 01/29/18 12:03 Consult to Wound Care [CONS] Routine Reason for Consult: chronci abd wound 8 yrs, does dressing changes at home Call Completed: No Discharging clinician: Chente Scherer Anticipated date of discharge: 01/31/18 Physical Examination Vital Signs, Last 4 Hours Temp Pulse Resp BP 01/31/18 06:58 98.0 F 82 16 107/66 General: Conversant, No Apparent Distress HEENT: Atraumatic, Normocephaly, Mucus Membranes Moist Neck: No JVD, Normal carotid pulses Cardiac: Reg Rate and Rhythm, Normal S1 and S2, No Murmur Lungs: Normal Breath Sounds, No Wheeze, Rales, Rhonchi Neuro: Alert and responsive, No focal deficits noted Abdomen: Soft, Non-Tender, Other (Dressing D/I) Skin: No rashes noted on visualized skin Musculoskeletal: No Chest Wall Tenderness Extremities: No Clubbing, No Cyanosis, No Edema, Normal Pulses, Other (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 ) - Patient Status Disposition: Home, Self-Care Condition: Fair Functional capacity at discharge: independent ambulation Overall status at discharge: patient is progressing back to baseline - Discharge Instructions Follow Up With: NONE,PCP [Primary Care Provider] - Vicki Carreon MD [Partnered Physician] - Additional Instructions: RISK FACTORS: STOP SMOKING: If you smoke, STOP. Smoking or tobacco use significantly increases your risk of heart disease because nicotine causes the arteries to narrow or constrict. It also causes fats to stick to the artery. Your chances of having a heart attack are greatly increased if you continue to smoke. For more information, call the education line for smoking cessation 5-592-CUIOLFR EAT A LOW FAT/CHOLESTEROL/SODIUM DIET: This diet may help reduce your chances of having a heart attack. LIFTING: Avoid lifting anything more than 10 pounds for 5-7 days Prior to straining, laughing, sneezing and/or coughing, apply manual pressure directly over insertion site. ACTIVITY: You may walk or climb stairs as tolerated You can resume sexual activity as tolerated In general, you are encouraged to engage in a minimum of 30 minutes or more of moderate intensity physical activity, such as brisk walking, daily or at least 3-4 times weekly BATHING Do not submerge the site into water (bath tub, hot tub, swimming pool) for 1 week. This can be a source for infection into the blood stream. You may shower after 24 hours SITE CARE: After 24 hours, you may remove the dressing and leave the site open to air. Keep the site clean and dry. Clean gently and pat dry. You can expect bruising and tenderness that gradually resolve within a week or two. Return to work as instructed per your physician Resume driving as instructed per physician Keep all scheduled follow up appointments Resume medications as instructed IMPORTANT: If prescribed a Platelet Aggregation Inhibitor such as, Plavix, Brilinta or Effient: Duration of therapy is minimum one year These medications are often used in combination with Aspirin in prevention of future heart attacks Never discontinue unless consult with your Centrifugal Casting Machine Operator STROKE (CVA) Risk factors for a stroke are: Age, cigarette smoking, diabetes, excessive alcohol consumption, family history, high blood pressure, overweight, physical inactivity, prior stroke, heart attack, diagnosis of carotid artery stenosis or other artery disease. Warning signs: Sudden numbness or weakness of the face, arm or leg; especially on one side of the body, sudden confusion, trouble speaking or understanding, sudden trouble seeing in one or both eyes, sudden trouble walking, dizziness, loss of balance or coordination, sudden severe headache with no cause. Call 911 or go to the Emergency Room. CONGESTIVE HEART FAILURE: If you have been diagnosed with Congestive Heart Failure (CHF) and your symptoms return, make an appointment with your physician Weigh yourself daily. Notify your physician if you have a weight gain of two or more pounds in one day or five or more pounds in one week. If you experience any difficulty breathing, please call 911 BLEEDING: Although the risk of bleeding is minimal, it can happen. If you have any bleeding from the site, apply firm pressure above the puncture site for 10-15 minutes. If the bleeding does not stop, continue manual pressure and call 911 Contact your physician if: You develop a fever greater than 101 degrees Fahrenheit Your site becomes reddened or has any drainage You have an increase in pain or burning at the site or if a large knot forms at the site. If you experience chest pain, shortness of breath, dizziness, or extreme tiredness, stop the activity and rest. Please notify your physicians office if you experience any of these symptoms and they are not relieved by rest please call 911! - Diet and Activity Activity: increase activity as tolerated - VTE Reasons for not Prescribing Prophylaxis: Not indicated-Anticoagulated or INR therapeutic
--- NOTE | 2018-01-31 17:52 | Electrocardiograph Report ---
[place] [id number] Test Date: 2018-01-28 Pat Name: Raúl Calabrese Department: [id number] Room: [id number] Gender: M Mechanical Integrity Specialist: : 1960 Requested By: Amna Augustin Order Number: [id number] Reading MD: Nickie Brewer Measurements Intervals [place] Rate: 64 P: 76 MA: 155 QRS: -77 QRSD: 130 T: 48 QT: 466 QTc: 481 Interpretive Statements Sinus rhythm Nonspecific IVCD with LAD Inferior infarct, old Anterolateral infarct, age indeterminate Electronically Signed On 01-31-2018 17:50:24 EST by Nickie Brewer
--- NOTE | 2018-01-31 17:52 | Electrocardiograph Report ---
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
--- NOTE | 2018-02-01 07:26 | Electrocardiograph Report ---
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
== END 2018-01-31 12:48 | disposition home or self-care (01) | DRG 174 ==
LOC: ICNU 21:09 → EMEROOARM 21:09 → ICNU 22:15
PROVIDERS: ADMIT Internal Medicine Cardiovascular Disease; ATTEND Internal Medicine Cardiovascular Disease

== ENCOUNTER 2020-02-13 11:47 | Inpatient (IN) ==
[2020-02-13] MEDS ORDERED: *HR* FentaNYL (PF) 100 MCG/2 ML VIAL IVP ONE (12:00)
[2020-02-13 12:27] LABS: Basophils # 0.1 K/mcL (0.0-0.2); Basophils % 0.5 %; Eosinophils % 0.2 %; Hematocrit 48.7 % (37.5-50.1); Hemoglobin 16.4 g/dL (12.9-16.9); Immature Granulocytes % 0.7 % (0-4); Lymphocytes # 1.5 K/mcL (0.6-4.6); Lymphocytes % 12.5 %; Mean Corpuscular HGB Conc 33.7 g/dL (31.6-35.5); Mean Corpuscular Hemoglobin 30.9 pg (28.0-33.3); Mean Corpuscular Volume 91.7 fL (83.0-100.0); Mean Platelet Volume 11.5 fL (9.4-12.4); Monocytes # 0.8 K/mcL (0.0-1.3); Monocytes % 6.9 %; Neutrophils # 9.5 K/mcL (1.6-8.9); Platelet Count 172 K/mcL (140-400); Red Blood Count 5.31 M/mcL (4.19-5.50); Red Cell Distribution Width 12.9 % (11.5-14.5); Segmented Neutrophils % 79.2 %
[2020-02-13 12:31] LABS: INR 1.2; Prothrombin Time 13.4 Seconds (9.4-12.1)
[2020-02-13 12:47] LABS: BUN/Creatinine Ratio 20 (6-26); Blood Urea Nitrogen 14 mg/dL (8-23); Carbon Dioxide 23 mEq/L (23-29); Chloride 98 mEq/L (98-107); Glucose 295 mg/dL (70-105); Osmolality,Calculated 279 (280-300); Potassium 4.1 mEq/L (3.5-5.1); Sodium 129 mEq/L (136-145); eGFR For African Americans > 60 (> 60); eGFR For Non-African Americans > 60 (> 60)
[2020-02-13 12:49] LABS: Troponin I 3.82 ng/mL (< 0.04)
[2020-02-13] MEDS ORDERED: *HR* Heparin 5,000 UNIT/ML VIAL IVP PRN ×2 (13:56)
[2020-02-13] MEDS ORDERED: *HR* Heparin 5,000 UNIT/ML VIAL IVP ONE (13:56)
[2020-02-13] MEDS ORDERED: Nitroglycerin 0.4 MG TAB.SUBL SL PRN (14:00)
[2020-02-13] MEDS ORDERED: Furosemide 40 MG/4 ML VIAL IVP ONE ×2 (14:14→20:41)
[2020-02-13] MEDS: Heparin 25,000UNIT/250ML 1/2NS 25,000 UNIT/250 ML IV.SOLN IVC SCH (14:25)
[2020-02-13 14:33] LABS: Hematocrit 47.6 % (37.5-50.1); Hemoglobin 16.1 g/dL (12.9-16.9); Heparin anti-factor XA UFH < 0.04 IU/mL (0.30-0.70); INR 1.1; Mean Corpuscular HGB Conc 33.8 g/dL (31.6-35.5); Mean Corpuscular Hemoglobin 30.9 pg (28.0-33.3); Mean Corpuscular Volume 91.4 fL (83.0-100.0); Mean Platelet Volume 11.8 fL (9.4-12.4); Platelet Count 169 K/mcL (140-400); Prothrombin Time 13.2 Seconds (9.4-12.1); Red Blood Count 5.21 M/mcL (4.19-5.50); Red Cell Distribution Width 12.8 % (11.5-14.5); White Blood Count 12.9 K/mcL (4.3-11.1)
[2020-02-13] MEDS ORDERED: Morphine Sulfate 2 MG/ML SYRINGE IVP ONE ×2 (14:43→19:28)
[2020-02-13] MEDS ORDERED: Naloxone 0.4 MG/ML INJ IVP PRN (14:54)
[2020-02-13] MEDS ORDERED: Perflutren Lipid Microsphere 1.3 ML in 0.9 % Sodium Chloride 8.7 ML IVP PRN (14:57)
[2020-02-13] MEDS: Aspirin 81 MG TAB.CHEW PO SCH (15:48)
[2020-02-13] MEDS: Nicotine 21 MG PATCH.TD24 TD SCH (16:33)
[2020-02-13] MEDS ORDERED: Tirofiban 12.5 MG/250ML 12.5 MG/250 ML BAG IVC SCH (21:00)
[2020-02-13 23:38] LABS: Adenovirus Not Detected (Not Detect); Bordetella Pertussis Not Detected (Not Detect); Chlamydophila pneumoniae Not Detected (Not Detect); Coronavirus 229E Not Detected (Not Detect); Coronavirus HKU1 Not Detected (Not Detect); Coronavirus NL63 Not Detected (Not Detect); Coronavirus OC43 Not Detected (Not Detect); Human Metapneumovirus Not Detected (Not Detect); Human Rhinovirus/Enterovirus Not Detected (Not Detect); Influenza A Subtype 2009 H1 Not Detected (Not Detect); Influenza B Not Detected (Not Detect); Mycoplasma pneumoniae Not Detected (Not Detect); Parainfluenza Virus 1 Not Detected (Not Detect); Parainfluenza Virus 2 Not Detected (Not Detect); Parainfluenza Virus 3 Not Detected (Not Detect); Parainfluenza Virus 4 Not Detected (Not Detect); Respiratory Syncytial Virus Not Detected (Not Detect); SARS-CoV-2 Not Detected (Not Detect)
[2020-02-14 02:48] LABS: Basophils # 0.1 K/mcL (0.0-0.2); Basophils % 0.4 %; Eosinophils # 0.1 K/mcL (0.0-0.6); Eosinophils % 0.7 %; Hemoglobin 16.6 g/dL (12.9-16.9); Immature Granulocytes % 0.4 % (0-4); Lymphocytes # 1.9 K/mcL (0.6-4.6); Lymphocytes % 11.2 %; Mean Corpuscular HGB Conc 35.3 g/dL (31.6-35.5); Mean Corpuscular Hemoglobin 32.1 pg (28.0-33.3); Mean Corpuscular Volume 90.9 fL (83.0-100.0); Mean Platelet Volume 11.8 fL (9.4-12.4); Monocytes # 1.6 K/mcL (0.0-1.3); Monocytes % 9.8 %; Neutrophils # 12.7 K/mcL (1.6-8.9); Platelet Count 183 K/mcL (140-400); Red Blood Count 5.17 M/mcL (4.19-5.50); Segmented Neutrophils % 77.5 %; White Blood Count 16.5 K/mcL (4.3-11.1)
[2020-02-14 03:05] LABS: Chol/HDL Ratio 9.7 (0-4.9)
[2020-02-14 03:07] LABS: BUN/Creatinine Ratio 24 (6-26); Blood Urea Nitrogen 16 mg/dL (8-23); Calcium 9.2 mg/dL (8.6-10.3); Carbon Dioxide 22 mEq/L (23-29); Chloride 96 mEq/L (98-107); Glucose 251 mg/dL (70-105); Magnesium 1.8 mg/dL (1.6-2.6); Osmolality,Calculated 278 (280-300); Potassium 3.7 mEq/L (3.5-5.1); Sodium 129 mEq/L (136-145); eGFR For African Americans > 60 (> 60); eGFR For Non-African Americans > 60 (> 60)
[2020-02-14 03:32] LABS: Troponin I 38.42 ng/mL (< 0.04)
[2020-02-14 04:07] LABS: Estimated Average Glucose 166 mg/dl
[2020-02-14] MEDS ORDERED: Furosemide 40 MG/4 ML VIAL IVP ONE (06:00)
[2020-02-14] MEDS: Aspirin 81 MG TAB.CHEW PO SCH (08:32)
[2020-02-14] MEDS: Heparin 25,000UNIT/250ML 1/2NS 25,000 UNIT/250 ML IV.SOLN IVC SCH (08:32)
[2020-02-14] MEDS: Nicotine 21 MG PATCH.TD24 TD SCH (08:34)
[2020-02-14] MEDS: Acetaminophen 325 MG TABLET PO PRN ×2 (09:47→21:24)
[2020-02-14] MEDS: Silvasorb 44.4 ML TUBE TP SCH (13:38)
[2020-02-14] MEDS ORDERED: 0.9 % Sodium Chloride 1,000 ML ONE (14:58)
[2020-02-14] MEDS ORDERED: ISOVUE-370 200 ML INFUS..BTL ONE (14:58)
[2020-02-14] MEDS ORDERED: *HR* Heparin 10,000 UNIT/10 ML VIAL ONE (14:58)
[2020-02-14] MEDS ORDERED: Heparin 1,000 UNITS/500 mL 500 ML ONE (14:58)
[2020-02-14] MEDS ORDERED: Nitroglycerin 1,000 MCG/10 ML VIAL IV ONE (14:58)
[2020-02-14] MEDS ORDERED: *HR* FentaNYL (PF) 100 MCG/2 ML VIAL ONE (15:25)
[2020-02-14] MEDS ORDERED: *HR* Midazolam HCl 2 MG/2 ML VIAL ONE (15:25)
[2020-02-14 17:16] LABS: BUN/Creatinine Ratio 31 (6-26); Blood Urea Nitrogen 20 mg/dL (8-23); Calcium 9.8 mg/dL (8.6-10.3); Carbon Dioxide 23 mEq/L (23-29); Chloride 97 mEq/L (98-107); Glucose 182 mg/dL (70-105); Osmolality,Calculated 275 (280-300); Potassium 3.8 mEq/L (3.5-5.1); Sodium 129 mEq/L (136-145); eGFR For African Americans > 60 (> 60); eGFR For Non-African Americans > 60 (> 60)
[2020-02-14 17:19] LABS: Basophils # 0.1 K/mcL (0.0-0.2); Basophils % 0.4 %; Eosinophils # 0.1 K/mcL (0.0-0.6); Eosinophils % 0.5 %; Hematocrit 48.6 % (37.5-50.1); Hemoglobin 16.5 g/dL (12.9-16.9); Immature Granulocytes % 0.5 % (0-4); Lymphocytes # 1.9 K/mcL (0.6-4.6); Lymphocytes % 12.6 %; Mean Corpuscular Hemoglobin 31.1 pg (28.0-33.3); Mean Corpuscular Volume 91.5 fL (83.0-100.0); Monocytes # 2.1 K/mcL (0.0-1.3); Monocytes % 14.1 %; Neutrophils # 10.9 K/mcL (1.6-8.9); Platelet Count 176 K/mcL (140-400); Red Blood Count 5.31 M/mcL (4.19-5.50); Red Cell Distribution Width 13.2 % (11.5-14.5); Segmented Neutrophils % 71.9 %; White Blood Count 15.2 K/mcL (4.3-11.1)
[2020-02-14] MEDS: Isosorbide MONOnitrate (24 HR) 30 MG TAB.ER.24H PO SCH (17:27)
[2020-02-14] MEDS ORDERED: Pregabalin 50 MG CAPSULE PO SCH (21:00)
[2020-02-15] MEDS: Heparin 25,000UNIT/250ML 1/2NS 25,000 UNIT/250 ML IV.SOLN IVC SCH (05:20)
[2020-02-15] MEDS: Acetaminophen 325 MG TABLET PO PRN (05:21)
[2020-02-15 05:43] LABS: Basophils # 0.1 K/mcL (0.0-0.2); Basophils % 0.5 %; Eosinophils # 0.1 K/mcL (0.0-0.6); Eosinophils % 0.5 %; Hematocrit 48.4 % (37.5-50.1); Hemoglobin 16.6 g/dL (12.9-16.9); Immature Granulocytes % 0.6 % (0-4); Lymphocytes # 2.5 K/mcL (0.6-4.6); Lymphocytes % 15.2 %; Mean Corpuscular HGB Conc 34.3 g/dL (31.6-35.5); Mean Corpuscular Volume 90.5 fL (83.0-100.0); Mean Platelet Volume 11.6 fL (9.4-12.4); Monocytes # 2.3 K/mcL (0.0-1.3); Monocytes % 14.3 %; Neutrophils # 11.2 K/mcL (1.6-8.9); Platelet Count 175 K/mcL (140-400); Red Blood Count 5.35 M/mcL (4.19-5.50); Red Cell Distribution Width 13.2 % (11.5-14.5); Segmented Neutrophils % 68.9 %; White Blood Count 16.2 K/mcL (4.3-11.1)
[2020-02-15 05:56] LABS: BUN/Creatinine Ratio 35 (6-26); Blood Urea Nitrogen 24 mg/dL (8-23); Carbon Dioxide 24 mEq/L (23-29); Chloride 98 mEq/L (98-107); Glucose 195 mg/dL (70-105); Osmolality,Calculated 279 (280-300); Potassium 3.8 mEq/L (3.5-5.1); Sodium 130 mEq/L (136-145); eGFR For African Americans > 60 (> 60); eGFR For Non-African Americans > 60 (> 60)
[2020-02-15] MEDS: Isosorbide MONOnitrate (24 HR) 30 MG TAB.ER.24H PO SCH (08:54)
[2020-02-15] MEDS: Nicotine 21 MG PATCH.TD24 TD SCH (08:54)
[2020-02-15] MEDS: Silvasorb 44.4 ML TUBE TP SCH (08:55)
[2020-02-15] MEDS: Aspirin 81 MG TAB.CHEW PO SCH (08:55)
[2020-02-15] MEDS ORDERED: Furosemide 20 MG TABLET PO PRN (10:28)
[2020-02-15] MEDS ORDERED: Spironolactone 25 MG TABLET PO SCH (10:30)
[2020-02-15 18:26] VITALS: BP 105/69
== END 2020-02-15 18:42 | disposition home or self-care (01) | DRG 190 ==
LOC: EMEROOARM 11:47 → 2ANU 11:47 → SUATTDRO 14:53 → 2ANU 15:15
PROVIDERS: ADMIT Internal Medicine; ATTEND Student in an Organized Health Care Education/Training Program